=== PATIENT | female | born 1960 | race Caucasian/White ===

== ENCOUNTER 2019-12-08 11:52 | Emergency (ER) | payer BC, OTHER ==
[2019-12-08 13:41] VITALS: BP 122/91; TEMP 98; O2SAT 99
--- NOTE | 2019-12-10 17:56 | EDPHYS ---
Physician Documentation [facility] Name: Sherry Ro Age: 59 yrs Sex: Female : 1960 Arrival Date: 12/08/2019 Time: 11:53 Bed 13 Private MD: ED Physician Rolly Herrera HPI: 12/07 13:22 This 59 yrs old Female presents to ER via Ambulatory with complaints of jr8 Medical Clearance. 13:22 Patient stated that she had what appeared to be a GI virus a few days ago. 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 Stated that she went to urgent care but denied her as she had fever there. Patient stated that she does not feel feverish and has no symptoms at this time. Severity of symptoms: At their worst the symptoms were mild in the emergency department the symptoms are unchanged. The patient has not experienced similar symptoms in the past. The patient has not recently seen a physician. Historical: - Allergies: 12:32 PENICILLINS; em - Home Meds: 12:32 None [Active]; em - PMHx: 12:32 None; em - PSHx: 12:32 None; em - Immunization history:: Adult Immunizations up to date. - Social history:: Smoking status: Patient reports the use of cigarette tobacco products, smokes one-half pack cigarettes per day. ROS: 13:22 Constitutional: Negative for fever, chills, and weight loss, Eyes: Negative for injury, jr8 pain, redness, and discharge, ENT: Negative for injury, pain, and discharge, Neck: Negative for injury, pain, and swelling, Cardiovascular: Negative for chest pain, palpitations, and edema, Respiratory: Negative for shortness of breath, cough, wheezing, and pleuritic chest pain, Abdomen/GI: Negative for abdominal pain, nausea, vomiting, diarrhea, and constipation, Back: Negative for injury and pain, MS/Extremity: Negative for injury and deformity, Skin: Negative for injury, rash, and discoloration, Neuro: Negative for headache, weakness, numbness, tingling, and seizure. Exam: 13:22 Constitutional: This is a well developed, well nourished patient who is awake, alert, jr8 and in no acute distress. Eyes: Pupils equal round and reactive to light, extra-ocular motions intact. Lids and lashes normal. Conjunctiva and sclera are non-icteric and not injected. Cornea within normal limits. Periorbital areas with no swelling, redness, or edema. ENT: Nares patent. No nasal discharge, no septal abnormalities noted. Tympanic membranes are normal and external auditory canals are clear. Oropharynx with no redness, swelling, or masses, exudates, or evidence of obstruction, uvula midline. Mucous membranes moist. Neck: Trachea midline, no thyromegaly or masses palpated, and no cervical lymphadenopathy. Supple, full range of motion without nuchal rigidity, or vertebral point tenderness. No Meningismus. Cardiovascular: Regular rate and rhythm with a normal S1 and S2. No gallops, murmurs, or rubs. Normal PMI, no JVD. No pulse deficits. Respiratory: Lungs have equal breath sounds bilaterally, clear to auscultation and percussion. No rales, rhonchi or wheezes noted. No increased work of breathing, no retractions or nasal flaring. Abdomen/GI: Soft, non-tender, with normal bowel sounds. No distension or tympany. No guarding or rebound. No evidence of tenderness throughout. Back: No spinal tenderness. No costovertebral tenderness. Full range of motion. Skin: Warm, dry with normal turgor. Normal color with no rashes, no lesions, and no evidence of cellulitis. MS/ Extremity: Pulses equal, no cyanosis. Neurovascular intact. Full, normal range of motion. Neuro: Awake and alert, GCS 15, oriented to person, place, time, and situation. Cranial nerves II-XII grossly intact. Motor strength 5/5 in all extremities. Sensory grossly intact. Cerebellar exam normal. Normal gait. Vital Signs: 12:28 BP 122 / 91; Pulse 96; Resp 18; Temp 98.0(O); Pulse Ox 99% on R/A; Weight 74.84 kg; em Height 5 ft. 5 in. (165.10 cm); Pain 0/10; 12:28 Body Mass Index 27.46 (74.84 kg, 165.10 cm) em MDM: 12:[address] [facility] 13:22 Data reviewed: vital signs, nurses notes, lab test result(s), and as a result, I will [facility] discharge patient. Data interpreted: Pulse oximetry: on room air is 99 %. Interpretation: normal. Counseling: I had a detailed discussion with the patient and/or guardian regarding: the historical points, exam findings, and any diagnostic results supporting the discharge/admit diagnosis, lab results, the need for outpatient follow up, a family practitioner, to return to the emergency department if symptoms worsen or persist or if there are any questions or concerns that arise at home. 12/07 13:08 Order name: COVID-Lai jr8 Administered Medications: No medications were administered Disposition: 15:35 Co-signature as Attending Physician, Rolly Herrera MD I agree with the assessment and kdr plan of care. Disposition: 12/08/19 13:28 Discharged to Home. Impression: Encounter for general adult medical examination. - Condition is Stable. - Discharge Instructions: COVID-19. - Work release form, Medication Reconciliation Form, Thank You Letter, Antibiotic Education, Prescription Opioid Use form. - Follow up: Private Physician; When: As needed; Reason: Recheck today's complaints, Continuance of care, Re-evaluation by your physician. - Problem is new. - Symptoms have improved. Signatures: Dispatcher [employer] [facility] Rolly Herrera MD MD [facility] Francois Sky, ARIELLA RN em Lisbeth Duran RN RN Harish Saavedra PA PA jr8 Corrections: (The following items were deleted from the chart) 13:34 13:28 12/08/2019 13:28 Discharged to Home. Impression: Encounter for general adult ss medical examination. Condition is Stable. Forms are Medication Reconciliation Form, Thank You Letter, Antibiotic Education, Prescription Opioid Use. Follow up: Private Physician; When: As needed; Reason: Recheck today's complaints, Continuance of care, Re-evaluation by your physician. Problem is new. Symptoms have improved. jr8
--- NOTE | 2019-12-10 17:56 | ER ---
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 Coronavirus screen: Proceed with normal triage. Patient reports a cough. Patient denies shortness of breath or difficulty breathing. Patient denies measured and/or subjective temperature greater than 100.4F prior to today's visit. Patient denies travel on a cruise ship or to a country the [facility] currently lists as an affected area. Patient reports contact with known and/or suspected case of COVID-19. pt works at [employer]. Ebola Screen: Patient negative for fever greater than or equal to 101.5 degrees Fahrenheit, and additional compatible Ebola Virus Disease symptoms Patient denies exposure to infectious person. Patient denies travel to an Ebola-affected area in the 21 days before illness onset. No symptoms or risks identified at this time. Initial Sepsis Screen: Does the patient meet any 2 criteria? HR > 90 bpm. No. Patient's initial sepsis screen is negative. Does the patient have a suspected source of infection? No. Patient's initial sepsis screen is negative. Risk Assessment: Do you want to hurt yourself or someone else? Patient reports no desire to harm self or others. Onset of symptoms was December 08, 2019. 12:28 Method Of Arrival: Ambulatory em 12:28 Acuity: JOVANNA 5 em Historical: - Allergies: 12:32 PENICILLINS; em - Home Meds: 12:32 None [Active]; em - PMHx: 12:32 None; em - PSHx: 12:32 None; em - Immunization history:: Adult Immunizations up to date. - Social history:: Smoking status: Patient reports the use of cigarette tobacco products, smokes one-half pack cigarettes per day. Screenin:28 Abuse screen: Denies threats or abuse. Nutritional screening: No deficits noted. em Tuberculosis screening: No symptoms or risk factors identified. Fall Risk None identified. Assessment: 12:30 General: Appears in no apparent distress. comfortable, Behavior is calm, cooperative, em appropriate for age, Denies fever. Pain: Denies pain. Neuro: Level of Consciousness is awake, alert, obeys commands, Oriented to person, place, time, situation, Appropriate for age. Cardiovascular: Capillary refill < 3 seconds Patient's skin is warm and dry. Respiratory: Airway is patent Respiratory effort is even, unlabored, Respiratory pattern is regular, symmetrical. GI: Abdomen is flat, Patient currently denies diarrhea, nausea, vomiting. Derm: Skin is intact, is healthy with good turgor, Skin is pink, warm \T\ dry. Musculoskeletal: Capillary refill < 3 seconds, Range of motion: intact in all extremities. Vital Signs: 12:28 BP 122 / 91; Pulse 96; Resp 18; Temp 98.0(O); Pulse Ox 99% on R/A; Weight 74.84 kg; em Height 5 ft. 5 in. (165.10 cm); Pain 0/10; 12:28 Body Mass Index 27.46 (74.84 kg, 165.10 cm) em ED Course: 11:53 Patient arrived in ED. ag5 12:28 Patient has correct armband on for positive identification. Bed in low position. Call em light in reach. 12:31 Triage completed. em 12:32 Arm band placed on. em 12:33 Francois Sky, RN is Primary Nurse. em 12:34 Harish Saavedra PA is PHCP. jr8 12:34 Rolly Herrera MD is Attending Physician. jr8 13:33 COVID-19 Sent. ss 13:33 No provider procedures requiring assistance completed. Patient did not have IV access ss during this emergency room visit. Administered Medications: No medications were administered Outcome: 13:28 Discharge ordered by . jr8 13:33 Discharged to home ambulatory. ss 13:33 Condition: good 13:33 Discharge instructions given to patient, Instructed on discharge instructions, follow up and referral plans. medication usage, Demonstrated understanding of instructions, follow-up care. 13:34 Patient left the ED. ss Addendum: 12/13/2019 11:35 Addendum: Other COVID-19 not detected result called to patient, pt verbalizes a a5 understanding. Signatures: Francois Sky RN RN em Trudi Rome RN RN aa5 Lisbeth Duran RN RN ss Harish Saavedra PA PA jr8 Davian Henson ag5 Corrections: (The following items were deleted from the chart) 12/07 12:33 12:28 BP 122 / 91; Pulse 96bpm; Resp 18bpm; Pulse Ox 99% RA; 74.84 kg; Height 5 ft. 5 em in.; BMI: 27.4; Pain 0/10; em
== END 2019-12-08 13:34 | disposition home or self-care (01) ==
LOC: ER 11:52
DX: Z00.00 Encounter for general adult medical examination without abnormal findings (principal); Z20.828 Contact with and (suspected) exposure to other viral communicable diseases; F17.210 Nicotine dependence, cigarettes, uncomplicated; Z88.0 Allergy status to penicillin
CPT/HCPCS: 99283; U0002

== ENCOUNTER 2022-07-03 10:49 | Emergency (ER) | payer BC ==
--- OUTSIDE RECORDS SUMMARY | 2022-07-03 10:55 | XMS REPORT | Continuity of Care Document ---
:1960 Author Organization [facility] t Address [address] [place] [address] Care Team Providers Name Role Phone Trudi Long Primary Care Physician Alexi Mathis Attending Clinician Provider MD, Not In System Attending Clinician Unavailable Loren Lebron MA Attending Clinician Unavailable Licha Delgado MD Attending Clinician Andres GUZMAN, Gema Ulloa Attending Clinician [phone] Cecelia Mcgrath MA Attending Clinician Unavailable Sadaf Dumont MA Attending Clinician Unavailable Monica Quiros RD Attending Clinician Unavailable Leticia Hinkle MA Attending Clinician Unavailable Vel LÓPEZ, Pedro Omalley Attending Clinician Hina RISK CONTROL FIELD REPRESENTATIVE, Alexandra Wills Attending Clinician Beatriz Dumont RN Attending Clinician Unavailable Christian Waller MD Attending Clinician Joseph Pastor Attending Clinician Morgan Ayoub Attending Clinician Autumn Jean MD Attending Clinician [phone] Lonnie Levi MD Attending Clinician Evelin LÓPEZ, Dasia Tamez Attending Clinician Tomasz Zavala PT Attending Clinician Unavailable Salvador Serrato MD Attending Clinician Christos LÓPEZ, Blas Attending Clinician Maddie GUZMAN, Madison Attending Clinician Magali David MA Attending Clinician Unavailable PEDRO CROWDER Admitting Clinician Unavailable LICHA DELGADO Admitting Clinician Unavailable SALVADOR SERRATO Admitting Clinician Unavailable Payers Payer Name Policy Type Policy Number Effective Date Expiration Date S ource Problems Condition Condition Condition Status Onset Resolution Last Treating Co mments Source Name Details Category Date Date Treatment Clinician Date Jejunostom Jejunostom Disease Active M ethodi y tube y tube 01-21 st site pain site pain 00:00: Hosp vicky 00 l Esophageal Esophageal Disease Active M ethodi cancer cancer 01-13 st 00:00: Hospita 00 l H/O H/O Disease Active [facility] esophagect esophagect 01-06 st shawn shawn 00:00: Hospita 00 l Chronic Chronic Disease Active [facility] GERD GERD 01-06 st 00:00: Hospita 00 l Primary Primary Disease Active Methodi hypertensi hypertensi 01-06 st on on 00:00: Hospita 00 l Malignant Malignant Disease Active Overview: Methodi neoplasm neoplasm 5-[address] of lower of lower 00:00: g of this Hos laura third of third of 00 note l esophagus esophagus might be different from the original. Added automatic ally from request for surgery [id number] Lumbar Lumbar Problem Active 2022-06-13 [facility] tran spondylosi spondylosi 13:01:17 l s s [place] (disorder) (disorder) Active Problem 06/13/2022 [facility] Paresthesi Problem Active 2022-06-13 M emoria a Paresthesi 13:01:17 l (finding) a Abdoulaye (finding) Active Problem 06/13/2022 [facility] Beriberi Beriberi Problem Active 2022-06-13 Memoria (disorder) (disorder) 13:01:17 l Active [place] Problem 06/13/2022 [facility] Peripheral Periphera Problem Active 2022-06-13 Memoria nerve l nerve 13:01:17 l disease disease Abdoulaye (disorder) (disorder) Active Problem 06/13/2022 [facility] Allergies, Adverse Reactions, Alerts Allergy Allergy Status Severity Reaction(s) Onset Inactive Treating Comm ents Source Name Type Date Date Clinician Penicill Propensi Active Hives Method i ins ty to 11-16 st adverse 00:00: Hospita reaction 00 l s to drug penicill penicill Active Memori a in in l Abdoulaye Family History Family Member Diagnosis Comments Start Date Stop Date Source Natural father COPD [facility] Natural father Heart attack [facility] Natural mother Hypertension [facility] Family member Colon cancer [facility] Family member Colon polyps [facility] Family member Pancreatic cancer Meth [facility] Family member Pancreatitis [facility] Social History Social Habit Start Date Stop Date Quantity Comments Source Alcohol intake 2022-02-17 2022-02-17 Current drinker [facility] 00:00:00 00:00:00 of alcohol Hospital (finding) Cigarettes smoked 2022-01-06 2022-01-[address] current (pack per 00:00:00 00:00:00 Hospita l day) - Reported Cigarette 2022-01-06 2022-01-06 [facility] pack-years 00:00:00 00:00:00 Hospital Tobacco use and 2022-01-06 2022-01-06 Smokeless tobacco [facility] exposure 00:00:00 00:00:00 non-user Hospital History of tobacco 2022-01-01 Current smoker [facility] use 00:00:00 Hospital Tobacco Comment 2021-12-16 2021-12-16 decreasing 2-3 [facility] 00:00:00 00:00:00 cigarettes per Hospital day Alcohol Comment 2021-11-16 2021-11-16 one drink [facility] 00:00:00 00:00:00 everyday after Hospital work Sex Ass[birth year] At [birth year] [facility] 00:00:00 00:00:00 Hospital Smoking Status Start Date Stop Date Source Tobacco smoking status 2022-06-10 14:16:26 2022-06-10 14:16:26 M elkin [facility] Medications Ordered Filled Start Stop Current Ordering Indication Dosage Frequency Signature Comments Components Source Medication Medication Date Date Medication? 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 Hospi ta 40 MG EC 06 l tablet gabapentin 2021- No [id number] 300mg Q8H Take 1 Method[facility] (NEURONTIN) 02-01 08-[address] 300 mg 00:00: 04:59 (300 mg Hospita capsule 00 :00 total) by l mouth every 8 (eight) hours for 30 days. methocarbam 2021- No [id number] 750mg Q8H Take 1 Methodi oL 7-25 08-[address] (ROBAXIN) 00:00: 04:59 (750 mg Hosp vicky 750 MG 00 :00 total) by l tablet mouth every 8 (eight) hours as needed for muscle spasms for up to 14 days. traZODone Yes 100mg QD Take 100 Met hodi (DESYREL) 7-[address] 100 MG 00:00: mouth Hospita tablet 00 nightly. l ostomy Yes [id number] [employer] [facility] supplies 7-[id number] misc 00:00: (Lot Hospita 00 #[id number]) l ostomy pouch, apply ostomy pouch to jejunostom y site every 3 days ostomy 2021- No [id number] [employer] [facility] supplies 7-20 07-[id number] misc 00:00: 00:00 ostomy Hospita 00 :00 pouch l (lot#[id number] ), apply to jejunostom y site every 3 days. clindamycin 2021- No 450mg Q.[id number] Take 3 Method[facility] (Cleocin 7-15 07-[id number] HCL) 150 MG 00:00: 04:59 3D (450 mg Ho spita capsule 00 :00 total) by l mouth 3 (three) times a day for 13 days. methocarbam 2021- No 750mg Q.[id number] Take 1 Methodi oL 01-[id number] (Robaxin-75 00:00: 04:59 3D (750 mg Ho spita 0) 750 MG 00 :00 total) by l tablet mouth 3 (three) times a day for 5 days. lisinopriL 2021- No 10mg QD Take 10 mg Method[facility] (PRINIVIL) 01-[address] 10 mg 17:53: 00:00 every Hospita tablet 55 :00 morning. l cholecalcif 2021- No 1{tbl} QD Take 1 M ethodi galindo, 01-15 tablet by vitamin D3, 17:53: 00:00 mouth Hosp vicky (VITAMIN D3 55 :00 daily. l ORAL) acetaminoph 2021- No 1{tbl} QD Take 1 M ethodi en/diphenhy 01-15 tablet by dramine 17:53: 00:00 mouth Hospita (TYLENOL PM 55 :00 nightly as l EXTRA needed. STRENGTH ORAL) enoxaparin 2021- No 40mg QD Inject 0.4 Methodi (LOVENOX) 01-15 mL ([address] 40 mg/0.4 00:00: 04:59 total) Hospi ta mL syringe 00 :00 under the l skin daily for 30 days. lidocaine 2021- No 1{patch Q24H Place 1 M ethodi (LIDODERM) 01-15 } patch on st 5 % 00:00: 04:59 the skin Hospita 00 :00 daily for l 30 days. Remove & Discard patch within 12 hours or as directed by MD mancini 2021- No 1000mg Q8H 31.3 mL Methodi en 01-15 (1,[address] (TYLENOL) 00:00: 04:59 total) by Ho spita 160 mg/5 mL 00 :00 j-tube l (5 mL) route solution every 8 (eight) hours for 14 days. acetylcyste 2021- No [id number] 4mL Q.25D Take 4 mL Methodi ine 01-[id number] (MUCOMYST) 00:00: 04:59 nebulizati Hospita 200 mg/mL 00 :00 on every 4 l (20 %) (four) nebulizer hours solution while awake for 14 days. gabapentin 2021- No 250mg Q8H 5 mL (250 Methodi (NEURONTIN) 01-15 mg total) st 250 mg/5 mL 00:00: 04:59 by j-tube Hospita solution 00 :00 route l every 8 (eight) hours for 14 days. ipratropium 2021- No [id number] 3mL Q.[id number] Take 3 mL Methodi -albuteroL 01-[id number] (DUO-NEB) 00:00: 04:59 7D nebulizati H ospita 0.5-2.5 00 :00 on every 4 l mg/3 mL (four) nebulizer hours for 14 days. clindamycin 2021- No 150mg Q.[id number] 10 mL (150 Methodi (CLEOCIN) 01-15 [id number] mg total) st 75 mg/5 mL 00:00: 04:59 3D by j-tube H ospita solution 00 :00 route 3 l (three) times a day for 7 days. pantoprazol 2021- No 40mg QD Take 40 mg Methodi e 4-20 01-[address] (PROTONIX) 00:00: 00:00 every Hospi ta 40 MG EC 00 :00 morning. l tablet Immunizations Ordered Immunization Filled Immunization Date Status Commen ts Source Name Name PFIZER COVID-19 MRNA 2021-12-11 Completed Meth odist VACCINATION 00:00:00 [facility] COVID-19 2020-10-30 Completed Methodis t MRNA VACCINATION 00:00:00 [facility] COVID-19 2020-10-02 Completed Methodis t MRNA VACCINATION 00:00:00 Hospital Vital Signs Vital Name Observation Time Observation Value Comments Source Systolic (mm Hg) 2022-06-10 14:16:00 [place]asta rial Abdoulaye Diastolic (mm Hg) 2022-06-10 14:16:00 Mem orial [place] Heart Rate 2022-06-10 14:16:00 [facility] Height 2022-06-10 14:16:00 [facility] 2022-06-10 14:16:00 [facility] BMI Calculated 2022-06-10 14:16:00 Memori al Abdoulaye Systolic (mm Hg) 2022-04-26 18:35:00 [facility]asta rial Abdoulaye Diastolic (mm Hg) 2022-04-26 18:35:00 Mem orial Abdoulaye Heart Rate 2022-04-26 18:35:00 [facility] Height 2022-04-26 18:35:00 5 [ft_i] [facility] Weight 2022-04-26 18:35:00 [facility] BMI Calculated 2022-04-26 18:35:00 [facility] al Abdoulaye Systolic blood 2022-02-17 15:56:00 98 mm[Hg] Method [facility] pressure Diastolic blood 2022-02-17 15:56:00 56 mm[Hg] [facility] pressure Heart rate 2022-02-17 15:56:00 85 /min [facility] Body temperature 2022-02-17 15:56:00 36.28 Leatha [facility] Respiratory rate 2022-02-17 15:56:00 14 /min [facility] Body height 2022-02-17 15:56:00 162.6 cm [facility] Body weight 2022-02-17 15:56:00 67.223 kg [facility] BMI 2022-02-17 15:56:00 25.44 kg/m2 [facility] Oxygen saturation in 2022-02-17 15:56:00 95 /min [facility] Arterial blood by Pulse oximetry Procedures Procedure Date / Time Performing Source Performed Clinician US DUPLEX VENOUS LOWER EXTREMITY 2022-03-01 Provider, Not I n [facility] 00:00:00 [facility] BASIC METABOLIC PANEL 2022-01-22 Michelle Ariza 10:15:00 [facility] CBC WITH PLATELET AND DIFFERENTIAL 2022-01-22 Ariza, Michelle [facility] 10:15:00 [facility] MAGNESIUM LEVEL 2022-01-22 Ariza, Michelle [facility] 10:15:00 [facility] PHOSPHORUS LEVEL 2022-01-22 Ariza, Michelle [facility] 10:15:00 [facility] ESTIMATED GFR 2022-01-22 Pedro Crowder [facility] 10:15:00 [facility] BASIC METABOLIC PANEL 2022-01-21 Ariza, Michelle [facility] 10:27:00 [facility] CBC WITH PLATELET AND DIFFERENTIAL 2022-01-21 Ariza, Michelle [facility] 10:27:00 [facility] MAGNESIUM LEVEL 2022-01-21 Ariza, Michelle [facility] 10:27:00 [facility] PHOSPHORUS LEVEL 2022-01-21 Ariza, Michelle [facility] 10:27:00 [facility] ESTIMATED GFR 2022-01-21 Pedro Crowder [facility] 10:27:00 Hospital POC GLUCOSE 2022-01-20 Pedro Crowder [facility] 22:27:00 [facility] POC GLUCOSE 2022-01-20 Pedro Crowder [facility] 16:33:00 Hospital POC GLUCOSE 2022-01-20 Pedro Crowder [facility] 13:04:00 [facility] COVID-19 QUALITATIVE RT-PCR 2022-01-20 Ariza, Michelle Meth odist 10:21:00 [facility] BASIC METABOLIC PANEL 2022-01-20 Ariza, Michelle [facility] 09:31:00 [facility] CBC WITH PLATELET AND DIFFERENTIAL 2022-01-20 Ariza, Michelle [facility] 09:31:00 [facility] MAGNESIUM LEVEL 2022-01-20 Ariza, Michelle [facility] 09:31:00 [facility] PHOSPHORUS LEVEL 2022-01-20 Ariza, Michelle [facility] 09:31:00 [facility] ESTIMATED GFR 2022-01-20 Pedro Crowder [facility] 09:31:00 Hospital URINE CULTURE 2022-01-19 Pedro Crowder [facility] 22:56:00 Hospital URINALYSIS SCREEN AND MICROSCOPY, 2022-01-19 Dio Umanzor [facility] WITH REFLEX TO CULTURE 22:56:00 Hospital BLOOD CULTURE, AEROBIC & ANAEROBIC 2022-01-19 Mauri Umanzor 16:57:00 Hospital BLOOD CULTURE, AEROBIC & ANAEROBIC 2022-01-19 Mauri Umanzor 16:42:[address] CHEST W CONTRAST ABDOMEN W 2022-01-19 Ana M Umanzor CONTRAST PELVIS W CONTRAST 15:38:58 Hospi alireza FL ESOPHAGRAM SINGLE CONTRAST 2022-01-19 Ana M Umanzor 15:07:43 Hospital POC GLUCOSE 2022-01-19 Pedro Crowder 10:12:00 Hospital CBC WITH PLATELET AND DIFFERENTIAL 2022-01-19 Michelle Ariza 09:16:00 [facility] BASIC METABOLIC PANEL 2022-01-19 Michelle Ariza 09:16:00 [facility] MAGNESIUM LEVEL 2022-01-19 Michelle Ariza 09:16:00 [facility] PHOSPHORUS LEVEL 2022-01-19 Michelle Ariza 09:16:00 [facility] ESTIMATED GFR 2022-01-19 Pedro Crowder 09:16:00 Hospital POC GLUCOSE 2022-01-19 Pedro Crowder 06:50:00 Hospital POC GLUCOSE 2022-01-19 Pedro Crowder 03:08:00 [facility] BASIC METABOLIC PANEL 2022-01-19 Pedro Crowder t 01:55:00 Hospital MAGNESIUM LEVEL 2022-01-19 Pedro Crowder 01:55:00 Hospital PHOSPHORUS LEVEL 2022-01-19 Pedro Crowder 01:55:00 Hospital ESTIMATED GFR 2022-01-19 Pedro Crowder 01:55:00 Hospital CBC WITH PLATELET AND DIFFERENTIAL 2022-01-18 Michelle Ariza 23:32:00 [facility] BASIC METABOLIC PANEL 2022-01-18 Lul Arizaca [facility] 23:32:00 [facility] MAGNESIUM LEVEL 2022-01-18 ArizaLindaMichelle [facility] 23:32:00 [facility] PHOSPHORUS LEVEL 2022-01-18 Ariza Michelle [facility] 23:32:00 [facility] POC GLUCOSE 2022-01-18 Pedro Crowder 22:08:00 Hospital XR CHEST 1 VW PORTABLE 2022-01-15 SandyLicha 19:03:42 Hospital POC GLUCOSE 2022-01-15 Sandy, Licha Vasquez 16:13:00 Hospital POC GLUCOSE 2022-01-15 Licha Delgado 12:25:00 Hospital BASIC METABOLIC PANEL 2022-01-15 Ariza, Michelle [facility] 11:51:00 [facility] CBC WITH PLATELET AND DIFFERENTIAL 2022-01-15 Ariza, Michelle [facility] 11:51:00 [facility] MAGNESIUM LEVEL 2022-01-15 Ariza, Michelle [facility] 11:51:00 [facility] PHOSPHORUS LEVEL 2022-01-15 Ariza, Michelle [facility] 11:51:00 [facility] ESTIMATED GFR 2022-01-15 Licha Delgado 11:51:00 Hospital POC GLUCOSE 2022-01-15 Licha Delgado 10:11:00 Hospital POC GLUCOSE 2022-01-15 Licha Delgado 05:52:00 Hospital POC GLUCOSE 2022-01-15 Licha Delgado 02:00:00 Hospital POC GLUCOSE 2022-01-14 Licha Delgado 21:24:00 Hospital POC GLUCOSE 2022-01-14 Licha Delgado 20:33:00 Hospital POC GLUCOSE 2022-01-14 Licha Delgado 17:53:00 Hospital XR CHEST 1 VW PORTABLE 2022-01-14 Licha Delgado 14:40:00 Hospital LINE/DRAIN REMOVAL 2022-01-14 Licha Delgado 13:48:22 Hospital POC GLUCOSE 2022-01-14 Licha Delgado 13:11:00 Hospital XR CHEST 1 VW PORTABLE 2022-01-[address] 11:55:00 Hospital BASIC METABOLIC PANEL 2022-01-14 Ana M Umanzor t 10:38:00 Hospital CBC WITH PLATELET AND DIFFERENTIAL 2022-01-14 Mauri Umanzor [facility] 10:38:00 Hospital PHOSPHORUS LEVEL 2022-01-14 Ana M Umanzor [facility] 10:38:00 Hospital MAGNESIUM LEVEL 2022-01-14 Ana M Umanzor [facility] 10:38:00 Hospital ESTIMATED GFR 2022-01-14 Licha Delgado 10:38:00 Hospital POC GLUCOSE 2022-01-14 Licha Delgado 02:26:00 Hospital POC GLUCOSE 2022-01-13 Licha Delgado 22:09:00 Hospital POC GLUCOSE 2022-01-13 Licha Delgado 18:07:00 Hospital POC GLUCOSE 2022-01-13 Licha Delgado 13:08:00 Hospital XR CHEST 1 VW PORTABLE 2022-01-13 Ana M Umanzor Dexi st 11:55:00 Hospital BASIC METABOLIC PANEL 2022-01-13 Ana M Umanzor Methodis t 10:36:00 Hospital CBC WITH PLATELET AND DIFFERENTIAL 2022-01-13 Nader Suero Mauri Kowalskiist 10:36:00 Hospital PHOSPHORUS LEVEL 2022-01-13 Dio Umanzordee [facility] 10:36:00 Hospital MAGNESIUM LEVEL 2022-01-13 Dio Umanzordee [facility] 10:36:00 Hospital ESTIMATED GFR 2022-01-13 Licha Delgado 10:36:00 Hospital SMEAR REVIEW 2022-01-13 Licha Delgado 10:36:00 Hospital POC GLUCOSE 2022-01-13 Licha Delgado 01:56:00 Hospital POC GLUCOSE 2022-01-12 Licha Delgado 20:18:00 Hospital XR CHEST 1 VW PORTABLE 2022-01-12 Michelle Ariza 19:25:00 [facility] RESPIRATORY CULTURE 2022-01-12 Licha Delgado 19:15:00 Hospital AFB CULTURE 2022-01-12 Licha Delgado 19:15:00 Hospital FUNGUS CULTURE 2022-01-12 Licha Delgado 19:15:00 Hospital GRAM STAIN 2022-01-12 Licha Delgado 19:15:00 Hospital AFB STAIN 2022-01-12 Licha Delgado 19:15:00 Hospital AL AN ELECTIVE ENDOTRACHEAL AIRWAY 2022-01-12 Stazzone, Cor inne [facility] 18:42:00 [facility] BRONCHOSCOPY 2022-01-12 SridharChristian Merrill [facility] 18:38:00 [facility] Hospital TYPE AND SCREEN 2022-01-12 Michelle Ariza 15:47:00 [facility] PROTHROMBIN TIME WITH INR 2022-01-12 Michelle Ariza Method ist 15:47:00 [facility] PARTIAL THROMBOPLASTIN TIME (PTT) 2022-01-12 Michelle Ariza 15:47:00 [facility] POC GLUCOSE 2022-01-12 Licha Delgado 13:12:00 Hospital XR CHEST 1 VW PORTABLE 2022-01-[address] 11:50:00 Hospital BASIC METABOLIC PANEL 2022-01-12 Dio Umanzordee Dexis t 07:59:00 Hospital CBC WITH PLATELET AND DIFFERENTIAL 2022-01-12 Nader Suero Briceño ydedee [facility] 07:59:00 Hospital PHOSPHORUS LEVEL 2022-01-12 Dio Umanzordee [facility] 07:59:00 Hospital MAGNESIUM LEVEL 2022-01-12 Dio Umanzordee [facility] 07:59:00 Hospital ESTIMATED GFR 2022-01-12 Licha Delgado 07:59:00 Hospital SMEAR REVIEW 2022-01-12 Licha Delgado 07:59:00 Hospital POC GLUCOSE 2022-01-12 Licha Delgado 01:27:00 Hospital POC GLUCOSE 2022-01-11 Licha Delgado 22:03:00 Hospital US CHEST 2022-01-11 Michelle Arizaist 20:28:37 [facility] POC GLUCOSE 2022-01-11 Licha Delgado 16:40:00 Hospital POC GLUCOSE 2022-01-11 Licha Delgado 12:28:00 Hospital XR CHEST 1 VW PORTABLE 2022-01-11 Radha Varghese 12:15:00 [facility] POC GLUCOSE 2022-01-11 Licha Delgado 01:46:00 Hospital POC GLUCOSE 2022-01-10 Licha Delgado 21:39:00 Hospital POC GLUCOSE 2022-01-10 Licha Delgado 16:38:00 Hospital POC GLUCOSE 2022-01-10 Licha Delgadoist 13:08:00 Hospital XR CHEST 1 VW PORTABLE 2022-01-10 Radha Varghese [facility] 10:45:00 [facility] CBC WITH PLATELET AND DIFFERENTIAL 2022-01-10 SandyLicha 09:43:00 Hospital BASIC METABOLIC PANEL 2022-01-10 Licha Delgado 09:42:00 Hospital MAGNESIUM LEVEL 2022-01-10 SandyLicha 09:42:00 Hospital PHOSPHORUS LEVEL 2022-01-10 SandyLicha 09:42:00 Hospital ESTIMATED GFR 2022-01-10 SandyLicha 09:42:00 Hospital POC GLUCOSE 2022-01-10 Licha Delgado 02:00:00 Hospital POC GLUCOSE 2022-01-09 Lciha Delgado 21:39:00 Hospital POC GLUCOSE 2022-01-09 Licha Delgado 17:21:00 Hospital B NATRIURETIC PEPTIDE 2022-01-09 Del Ana M Suero Methodis t 14:02:00 Hospital POC GLUCOSE 2022-01-09 Licha Delgado 12:32:00 Hospital XR CHEST 1 VW PORTABLE 2022-01-09 Ariza Michelle [facility] 10:55:00 [facility] BASIC METABOLIC PANEL 2022-01-09 Ariza Michelle [facility] 09:27:00 [facility] CBC WITH PLATELET AND DIFFERENTIAL 2022-01-09 Ariza Michelle [facility] 09:27:00 [facility] MAGNESIUM LEVEL 2022-01-09 Ariza Michelle [facility] 09:27:00 [facility] PHOSPHORUS LEVEL 2022-01-09 Ariza Michelle [facility] 09:27:00 [facility] ESTIMATED GFR 2022-01-09 Licha Delgado 09:27:00 Hospital IONIZED CALCIUM 2022-01-09 Licha Delgado 09:27:00 Hospital POC GLUCOSE 2022-01-09 Licha Delgado 02:18:00 Hospital POC GLUCOSE 2022-01-08 Licha Delgado 21:10:00 Hospital POC GLUCOSE 2022-01-08 Licha Delgado 21:08:00 Hospital POC GLUCOSE 2022-01-08 Licha Delgado 16:47:00 Hospital US THORACENTESIS WITH IMAGING 2022-01-08 Ariza, Michelle Me thodist 15:49:21 [facility] XR CHEST 1 VW PORTABLE 2022-01-08 Red Hanson [facility] 15:45:00 Hospital AEROBIC CULTURE 2022-01-08 Ariza, Michlele [facility] 15:32:00 [facility] ANAEROBIC CULTURE 2022-01-08 Ariza, Michelle [facility] 15:32:00 [facility] FUNGUS CULTURE 2022-01-08 Ariza, Michelle [facility] 15:32:00 [facility] GRAM STAIN 2022-01-08 Licha Delgadoist 15:32:00 Hospital GLUCOSE LEVEL, MISC FLUID 2022-01-08 Ariza, Michelle Method ist 15:32:00 [facility] LDH, MISC FLUID 2022-01-08 Ariza Michelle [facility] 15:32:00 [facility] PROTEIN, MISC FLUID 2022-01-08 Ariza, Michelle [facility] 15:32:00 [facility] PH, MISC FLUID 2022-01-08 Licha Delgado 15:32:00 Hospital POC GLUCOSE 2022-01-08 Licah Delgado 12:47:00 Hospital XR CHEST 1 VW PORTABLE 2022-01-08 Elsa Olea 11:12:22 [facility] POC GLUCOSE 2022-01-08 Licha Delgado [facility]:57[facility]00 [facility] 2022-01-08 Brandon Jonist TITER 06:29:00 [facility] ZZCOVID-19 SEROLOGY PATIENT 2022-01-08 Ramiro Jon SURVEILLANCE 06:29:00 [facility] CBC WITH PLATELET AND DIFFERENTIAL 2022-01-08 Trinidad Olea 06:29:00 [facility] BASIC METABOLIC PANEL 2022-01-08 Elsa Olea 06:29:00 [facility] MAGNESIUM LEVEL 2022-01-08 Elsa Olea 06:29:00 [facility] PHOSPHORUS LEVEL 2022-01-08 Elsa Olea 06:29:00 [facility] ESTIMATED GFR 2022-01-08 Elsa Olea 06:29:00 [facility] POC GLUCOSE 2022-01-08 SandyLicha 04:54:00 Hospital POC GLUCOSE 2022-01-08 Licha Delgado 01:00:00 Hospital POC GLUCOSE 2022-01-07 SandyLicha 21:55:00 Hospital POC GLUCOSE 2022-01-07 SandyLicha 16:51:00 Hospital POC GLUCOSE 2022-01-07 SandyLicha 12:51:00 Hospital XR CHEST 1 VW PORTABLE 2022-01-07 Elsa Olea 09:33:00 [facility] POC GLUCOSE 2022-01-07 SandyLicha 08:51:00 Hospital POC GLUCOSE 2022-01-07 SandyLicha 07:10:00 Hospital POC GLUCOSE 2022-01-07 SandyLicha 05:47:00 Hospital ARTERIAL BLOOD GAS 2022-01-07 Elsa Olea 05:30:00 [facility] BASIC METABOLIC PANEL 2022-01-07 Elsa Olea 05:30:00 [facility] CBC WITH PLATELET AND DIFFERENTIAL 2022-01-07 Trinidad Olea 05:30:00 [facility] MAGNESIUM LEVEL 2022-01-07 Elsa Olea 05:30:00 [facility] PARTIAL THROMBOPLASTIN TIME (PTT) 2022-01-07 Elsa Olea 05:30:00 [facility] PROTHROMBIN TIME WITH INR 2022-01-07 Elsa Olea ist 05:30:00 [facility] PHOSPHORUS LEVEL 2022-01-07 Elsa Olea 05:30:00 [facility] ESTIMATED GFR 2022-01-07 Elsa Olea 05:30:00 [facility] IONIZED CALCIUM, ARTERIAL 2022-01-07 Elsa Olea ist 05:30:00 [facility] SMEAR REVIEW 2022-01-07 Elsa Olea 05:30:00 [facility] POC GLUCOSE 2022-01-07 Licha Delgado 04:39:00 Hospital POC GLUCOSE 2022-01-07 Licha Delgado 03:50:00 Hospital POC GLUCOSE 2022-01-07 Licha Delgadoist 02:57:00 Hospital POC GLUCOSE 2022-01-07 Licha Delgado 01:52:00 Hospital POC GLUCOSE 2022-01-07 Licha Delgado 00:41:00 Hospital POC GLUCOSE 2022-01-06 Licha Delgado 23:54:00 Hospital XR CHEST 1 VW PORTABLE 2022-01-06 Naresh Molina 23:34:25 Hospital COMPREHENSIVE METABOLIC PANEL 2022-01-06 Naresh Molinaodi 23:13:00 Hospital MAGNESIUM LEVEL 2022-01-06 Naresh Molina 23:13:00 Hospital PHOSPHORUS LEVEL 2022-01-06 Naresh Molina 23:13:00 Hospital IONIZED CALCIUM 2022-01-06 Naresh Molina 23:13:00 Hospital LACTIC ACID LEVEL 2022-01-06 Naresh Molina 23:13:00 Hospital PROTHROMBIN TIME WITH INR 2022-01-06 Naresh Molina ist 23:13:00 Hospital PARTIAL THROMBOPLASTIN TIME (PTT) 2022-01-06 Naresh Molina 23:13:00 Hospital FIBRINOGEN 2022-01-06 Naresh Molina [facility] 23:13:00 Hospital CBC WITH PLATELET AND DIFFERENTIAL 2022-01-06 Naresh Molina 23:13:00 Hospital ESTIMATED GFR 2022-01-06 Naresh Molina 23:13:00 Hospital ARTERIAL BLOOD GAS 2022-01-06 Naresh Molina 23:13:00 Hospital POC GLUCOSE 2022-01-06 Licha Delgado 23:06:00 Hospital ARTERIAL BLOOD GAS, CORRECTED 2022-01-06 Licha Delgado thodist 20:34:00 Hospital SODIUM LEVEL, SYRINGE 2022-01-06 Licha Delgadoist 20:34:00 Hospital POTASSIUM, SYRINGE 2022-01-06 Licha Delgadoist 20:34:00 Hospital IONIZED CALCIUM, ARTERIAL 2022-01-06 Licha Delgado ist 20:34:00 Hospital HEMOGLOBIN, SYRINGE 2022-01-06 Licha Delgado 20:34:00 Hospital GLUCOSE LEVEL, SYRINGE 2022-01-06 Licha Delgadoist 20:34:00 Hospital LACTIC ACID, SYRINGE 2022-01-06 Licha Delgado 20:34:00 Hospital SURGICAL PATHOLOGY REQUEST 2022-01-06 Licha Delgado Metho dist 19:33:00 Hospital ARTERIAL BLOOD GAS, CORRECTED 2022-01-06 Licha Delgado thodist 18:55:00 Hospital SODIUM LEVEL, SYRINGE 2022-01-06 SandyLichaist 18:55:00 Hospital POTASSIUM, SYRINGE 2022-01-06 Sandy, Licha Kowalskiist 18:55:00 Hospital HEMOGLOBIN, SYRINGE 2022-01-06 Sandy, Licha Kowalskiist 18:55:00 Hospital IONIZED CALCIUM, ARTERIAL 2022-01-06 Licha Delgado ist 18:55:00 Hospital GLUCOSE LEVEL, SYRINGE 2022-01-06 Licha Delgadoist 18:55:00 Hospital ARTERIAL BLOOD GAS, CORRECTED 2022-01-06 Licha Delgado thodist 16:30:00 Hospital SODIUM LEVEL, SYRINGE 2022-01-06 Sandy, Licha Kowalskiist 16:30:00 Hospital POTASSIUM, SYRINGE 2022-01-06 Licha Delgadoist 16:30:00 Hospital HEMOGLOBIN, SYRINGE 2022-01-06 Sandy, Licha Owusu [facility] 16:30:00 Hospital IONIZED CALCIUM, ARTERIAL 2022-01-06 Licha Delgado ist 16:30:00 Hospital GLUCOSE LEVEL, SYRINGE 2022-01-06 Licha Delgadoist 16:30:00 Hospital ARTERIAL LINE 2022-01-06 Lonnie Levi 14:46:38 Hospital OR FL < 1 HOUR 2022-01-06 Radha Varghese 14:20:00 [facility] AL AN ELECTIVE ENDOTRACHEAL AIRWAY 2022-01-06 Lonnie Levi 13:33:00 Hospital JAMES RENETTA 2022-01-06 Licha Delgado ESOPHAGECTOMY,ROBOTIC-ASSISTED 13:15:00 H ospital ABO AND RH CONFIRMATION BY 2022-01-06 Avis Campos PROTOCOL 11:43:00 [facility] SPIROMETRY PRE AND POST WITH 2021-12-16 Licha Delgado hodist BRONCHILATOR, DIFFUSION, LUNG 20:34:38 Ho spital VOLUMES PROTHROMBIN TIME WITH INR 2021-12-16 Licha Delgado ist 16:40:00 Hospital RETICULOCYTE COUNT 2021-12-16 Licha Delgadoist 16:40:00 Hospital SEDIMENTATION RATE 2021-12-16 Sandy, Licha Vasquez 16:40:00 Hospital THYROID STIMULATING HORMONE 2021-12-16 Sandy, Licha Gamino odist 16:40:00 Hospital TOTAL IRON BINDING CAPACITY 2021-12-16 Sandy, Licha Gamino odist 16:40:00 Hospital TYPE AND SCREEN 2021-12-16 Sandy, Licha Vasquez 16:40:00 Hospital VITAMIN B12 LEVEL 2021-12-16 Sandy, Licha Vasquez 16:40:00 Hospital VITAMIN D 25 HYDROXY LEVEL 2021-12-16 Sandy, Licha Gaminoo dist 16:40:00 Hospital PREALBUMIN LEVEL 2021-12-16 Sandy, Licha Vasquez 16:40:00 Hospital PARTIAL THROMBOPLASTIN TIME (PTT) 2021-12-16 Sandy, Licha Vasquez 16:40:00 Hospital IRON LEVEL 2021-12-16 Sandy, Licha Vasquez 16:40:00 Hospital HEMOGLOBIN A1C 2021-12-16 Sandy, Licha Vasquez 16:40:00 Hospital FOLATE LEVEL 2021-12-16 Sandy, Licha Vasquez 16:40:00 Hospital FERRITIN LEVEL 2021-12-16 Sandy, Licha Vasquez 16:40:00 Hospital COMPREHENSIVE METABOLIC PANEL 2021-12-16 SandyLichaodi 16:40:00 Hospital CBC WITH PLATELET AND DIFFERENTIAL 2021-12-16 Sandy, Licha Vasquez 16:40:00 Hospital ESTIMATED GFR 2021-12-16 Sandy, Licha Vasquez 16:40:00 Hospital SMEAR REVIEW 2021-12-16 Sandy, Licha Vasquez 16:40:00 Hospital PREPARE RBC 2021-12-16 Sandy, Licha Vasquez 16:40:00 Hospital SURGICAL PATHOLOGY REQUEST 2021-12-02 Dacha, Salvador Metho dist 19:08:00 Hospital ESOPHAGOGASTRODUODENOSCOPY (EGD) 2021-12-02 Salvador Serrato 17:55:00 Hospital US UPPER GI TRACT, ENDOSCOPIC 2021-12-02 Dacmauri, Salvador Me thodist 17:55:[address] SKULL BASE TO MID THIGH 2021-11-24 Licha Delgado 20:56:23 Hospital POC GLUCOSE 2021-11-24 Licha Delgado 18:56:00 Hospital Esophagectomy [facility] Plan of Care Planned Activity Planned Date Details Comments Source Future Scheduled 2022-06-28 Hepatitis C screening [facility] Test 18:05:03 (procedure) [code = 288719443] Future Scheduled 2022-06-28 Screening for [facility] Test 18:05:03 malignant neoplasm of cervix (procedure) [code = 621059406] Future Scheduled 2022-06-28 BREAST CANCER [facility] Test 18:05:03 SCREENING [code = BREAST CANCER SCREENING] Future Scheduled 2022-06-28 COLONOSCOPY SCREENING [facility] Test 18:05:03 [code = COLONOSCOPY SCREENING] Future Scheduled 2022-06-28 SHINGLES VACCINES (1 [facility] Test 18:05:03 of 2) [code = SHINGLES VACCINES (1 of 2)] Future Scheduled 2022-06-28 COVID-19 VACCINE (4 - [facility] Test 18:05:03 Booster for Moderna series) [code = COVID-19 VACCINE (4 - Booster for Moderna series)] Future Scheduled 2022-06-28 INFLUENZA VACCINE [facility] Test 18:05:03 [code = INFLUENZA VACCINE] Encounters Start End Encounter Admission Attending Care Care Encounter Source Date/Time Date/Time Type Type Clinicians Facility Department ID 2022-08-11 2022-08-11 Outpatient JOSUE SALAS [id number] Memoria 09:30:00 09:30:00 02 laurie Stanford 2022-06-10 2022-06-11 Outpatient JOSUE LINDER [id number] Memoria 14:15:00 05:59:59 Neurology 01 laurie Stanford 2022-06-10 2022-06-10 Outpatient SERENE Mathis [id number] 08:15:00 23:59:59 Alexi 01 Joe 2022-06-10 2022-06-10 Outpatient JOSUE SALAS [id number] Memoria 08:15:00 08:15:00 01 laurie Stanford 2022-04-26 2022-04-27 Outpatient Martín LINDER [id number] Memoria 18:30:00 04:59:59 r Neurology 00 laurie Stanford 2022-04-26 2022-04-26 Outpatient [facility] [id number] 13:30:00 23:59:59 Alexi Diaz 2022-04-26 2022-04-26 Outpatient IE JAN [id number] Jerrodoria 13:30:00 13:30:00 00 l Abdoulaye 2022-03-04 2022-03-04 Orders Provider, 1.2.840.1 [id number] 2099 [id number] Methodi 00:00:00 00:00:00 Only [place] 70481.1.[address] System 3.430.2.7 Hospit a .3.997555 l .8 2022-03-04 2022-03-04 Telephone Bernardino, 1.2.840.1 [id number] Methodi 00:00:00 00:00:[address] 3.430.2.7 Hospit a .3.494099 l .8 2022-03-01 2022-03-01 Telephone Sandy, Min 1.2.840.3 [id number] 21 [id number] Methodi 00:00:00 00:00:[address] 3.430.2.7 Hospit a .3.229678 l .8 2022-03-01 2022-03-01 Telephone Bernardino, 1.2.840.1 [id number] [id number] Methodi 00:00:00 00:00:[address] 3.430.2.7 Hospit a .3.201698 l .8 2022-02-28 2022-02-28 Refdwayne Campos, 1.2.840.1 [id number] Methodi 00:00:00 00:00:00 Gema Ulloa 23211.1.1 849 s t 3.430.2.7 Hospit a .3.761833 l .8 2022-02-26 2022-02-26 Telephone Ramila, 1.2.840.1 [id number] 045 [id number] Methodi 00:00:00 00:00:[address] 3.430.2.7 Hospit a .3.615633 l .8 2022-02-25 2022-02-25 Orders Tim, 1.2.840.1 [id number] 012 [id number] Methodi 00:00:00 00:00:00 Only Sadaf 34682.1.[address] 3.430.2.7 Hospit a .3.949643 l .8 2022-02-25 2022-02-25 Telephone Bernardino, 1.2.840.1 [id number] 2100 548177 Methodi 00:00:00 00:00:[address] 3.430.2.7 Hospit a .3.571414 l .8 2022-02-23 2022-02-23 Telephone Lakhwindersalas, 1.2.840.1 [id number] 2099357 Methodi 00:00:00 00:00:[address] 3.430.2.7 Hospit a .3.943414 l .8 2022-02-19 2022-02-19 Telephone Hinkle, 1.2.840.1 [id number] 2099162 Methodi 00:00:00 00:00:[address] 3.430.2.7 Hospit a .3.363790 l .8 2022-02-17 2022-02-17 [facility] 1.2.840.1 [id number] Methodi 10:45:00 11:26:17 Visit Gema HaRafal 18059.1.1 521 s t 3.430.2.7 Hospit a .3.698538 l .8 2022-02-17 2022-02-17 Outpatient [facility] [id number] Rickreall 00:00:00 00:00:[address] [facility] 2022-02-17 2022-02-17 Travel 1.2.840.1 1.2.499.555 0426 531268 Methodi 00:00:00 00:00:[address] 3.430.2.7 0.2.7.3.698 Ho spita .3.810340 084.8 l .8 2022-02-10 2022-02-10 Abstract Tim, 1.2.840.1 [id number] Methodi 00:00:00 00:00:[address] 3.430.2.7 Hospit a .3.925350 l .8 2022-02-08 2022-02-08 Telephone [facility], 1.2.840.1 [id number] Methodi 00:00:00 00:00:00 Gema Ulloa 71899.1.1 062 s t 3.430.2.7 Hospit a .3.960048 l .8 2022-02-03 2022-02-03 Office [facility], 1.2.840.1 [id number] Methodi 10:45:00 12:46:43 Visit Gema Ulloa 58930.1.1 655 s t 3.430.2.7 Hospit a .3.195104 l .8 2022-02-03 2022-02-03 [facility] 090 [id number] Rickreall 00:00:00 00:00:00 GEMA [address] 2022-02-03 2022-02-03 Telephone Manan, 1.2.840.1 [id number] 2099 349099 Methodi 00:00:00 00:00:[address] 3.430.2.7 Hospit a .3.071702 l .8 2022-02-03 2022-02-03 Travel 1.2.840.1 1.2.683.552 1636 381905 Methodi 00:00:00 00:00:[address] 3.430.2.7 0.2.7.3.698 Ho spita .3.888287 084.8 l .8 2022-02-03 2022-02-03 Telephone Vel, 1.2.840.2 [id number] 010 [id number] Methodi 00:00:00 00:00:[address] 3.430.2.7 Hospit a .3.146299 l .8 2022-02-01 2022-02-01 Telephone Bernardino, 1.2.840.1 [id number] 2099 626827 Methodi 00:00:00 00:00:[address] 3.430.2.7 Hospit a .3.211667 l .8 2022-01-28 2022-01-28 Telephone Sandy, Min 1.2.840.6 [id number] Methodi 00:00:00 00:00:[address] 3.430.2.7 Hospit a .3.563568 l .8 2022-01-27 2022-01-27 Telephone Sandy, Min 1.2.840.4 [id number] [id number] Methodi 00:00:00 00:00:[address] 3.430.2.7 Hospit a .3.280870 l .8 2022-01-27 2022-01-27 Telephone Sandy, Min 1.2.840.3 [id number] 21 [id number] Methodi 00:00:00 00:00:[address] 3.430.2.7 Hospit a .3.302066 l .8 2022-01-27 2022-01-27 Telephone Andres, 1.2.840.6 [id number] Methodi 00:00:00 00:00:00 Gema HaRafal 19650.1.1 424 s t 3.430.2.7 Hospit a .3.525645 l .8 2022-01-26 2022-01-26 Telephone Manan, 1.2.840.1 [id number] 2100 846609 Methodi 00:00:00 00:00:[address] 3.430.2.7 Hospit a .3.202814 l .8 2022-01-18 2022-01-22 Hospital Vel, 1.2.840.1 [id number] 23621 52956 Methodi 16:56:00 12:47:00 Encounter Pedro Monroe. 80896.1.[address] 3.430.2.7 Hospit a .3.880498 l .8 2022-01-18 2022-01-22 Inpatient [facility] 027 [id number] 34 Rickreall 00:00:00 00:00:00 EDCLARK [address] 2022-01-18 2022-01-18 Office [place], 1.2.840.1 [id number] 069415 8202 Methodi 10:30:00 13:33:21 Visit Alexandra 12566.1.[address] Elma 3.430.2.7 Hospit a .3.955360 l .8 2022-01-18 2022-01-18 Orders Hina, 1.2.840.1 [id number] 294300 5927 Methodi 00:00:00 00:00:00 Only Alexandra 07317.1.[address] Elma 3.430.2.7 Hospit a .3.882146 l .8 2022-01-18 2022-01-18 Travel 1.2.840.1 1.2.111.541 0010 290209 Methodi 00:00:00 00:00:[address] 3.430.2.7 0.2.7.3.698 Ho spita .3.820108 084.8 l .8 2022-01-18 2022-01-18 Patient Tim, 1.2.840.1 [id number] 627 [id number] Methodi 00:00:00 00:00:00 Outreach Beatriz 92495.1.[address] 3.430.2.7 Hospit a .3.521059 l .8 2022-01-18 2022-01-18 Telephone [place], 1.2.840.1 [id number] 2099 840028 Methodi 00:00:00 00:00:[address] Elma 3.430.2.7 Hospit a .3.515689 l .8 2022-01-18 2022-01-18 Outpatient [facility] [id number] 893 Rickreall 00:00:00 00:00:[address] 2022-01-06 2022-01-15 Hospital Licha Delgado 1.2.840.1 [id number] 2100 039223 Methodi 05:55:00 17:53:00 Encounter Umer [address]8518.1.[address] 3.430.2.7 Hospit a .3.396703 l .8 2022-01-15 2022-01-15 Telephone Andres 1.2.840.1 [id number] Methodi 00:00:00 00:00:00 Gema HaRafal 97029.1.1 573 s t 3.430.2.7 Hospit a .3.601578 l .8 2022-01-06 2022-01-15 Inpatient LICHA DELGADO [facility] [id number] 230 Rickreall 00:00:00 00:00:[address] 2022-01-12 2022-01-12 Surgery Christian Waller 1.2.840.1 [id number] 371 0057538 Methodi 12:59:00 14:59:00 Merrill Stanislav 39972.1.[address] 3.430.2.7 Hospit a .3.514385 l .8 2022-01-12 2022-01-12 Anesthesia Joseph Pastor 1.2.840. 1 [id number] Methodi 13:33:00 14:20:00 Event Morgan Ayoub 50359.1.[address] 3.430.2.7 Hospit a .3.272985 l .8 2022-01-06 2022-01-06 Anesthesia Autumn Jean 1.2.840.1 [id number] Methodi 08:17:00 17:47:00 Event Lonnie Levi 12398.1.[address] 3.430.2.7 Hospit a .3.738371 l .8 2022-01-06 2022-01-06 Surgery Licha Delgado 1.2.840.1 [id number] 87137 34596 Methodi 08:15:00 17:45:[address] 3.430.2.7 Hospit a .3.306574 l .8 2022-01-06 2022-01-06 Travel 1.2.840.1 1.2.542.814 9342 006700 Methodi 00:00:00 00:00:[address] 3.430.2.7 0.2.7.3.698 Ho spita .3.229674 084.8 l .8 2022-01-05 2022-01-05 Prep for Meisenbach, 1.2.840.1 [id number] 2 [id number] Methodi 00:00:00 00:00:00 Surgery Gema Ulloa 69733.1.1 857 s t 3.430.2.7 Hospit a .3.468887 l .8 2022-01-05 2022-01-05 Telephone Meisenbach, 1.2.840.1 [id number] Methodi 00:00:00 00:00:00 Gema Ha. 70634.1.1 104 s t 3.430.2.7 Hospit a .3.023029 l .8 2021-12-31 2021-12-31 Telephone Meisenbach, 1.2.840.1 [id number] Methodi 00:00:00 00:00:00 Gema Ha. 88850.1.1 052 s t 3.430.2.7 Hospit a .3.568628 l .8 2021-12-17 2021-12-17 Telephone Sandy, Min 1.2.840.0 [id number] 21 [id number] Methodi 00:00:00 00:00:[address] 3.430.2.7 Hospit a .3.686829 l .8 2021-12-17 2021-12-17 Telephone Sandy, Min 1.2.840.4 [id number] 21 [id number] Methodi 00:00:00 00:00:[address] 3.430.2.7 Hospit a .3.723176 l .8 2021-12-17 2021-12-17 Telephone Andres, 1.2.840.1 [id number] [id number] Methodi 00:00:00 00:00:00 Gema HaRafal 92340.1.1 568 s t 3.430.2.7 Hospit a .3.126757 l .8 2021-12-16 2021-12-16 Hospital Sandy, Min 1.2.840.1 [id number] 2100 290278 Methodi 14:30:00 23:59:00 Encounter Umer 41574.1.[address] 3.430.2.7 Hospit a .3.355465 l .8 2021-12-16 2021-12-16 Evaluation Dasia Waters 1.2.840.1 1 [id number] 6105912596 Methodi 14:00:00 15:05:50 Tomasz Zavala 34182.1.[address] 3.430.2.7 Hospit a .3.799914 l .8 2021-12-16 2021-12-16 Pre-Admiss Licha Delgado 1.2.840.1 [id number] 21 [id number] Methodi 10:00:00 11:00:00 ion Umer 19991.1.[address] Testing 3.430.2.7 Hospit a .3.599011 l .8 2021-12-16 2021-12-16 Outpatient LICHA DELGADO [facility] [id number] Rickreall 00:00:00 00:00:[address] 2021-12-16 2021-12-16 Plan of 1.2.840.1 [id number] 810757 7631 Methodi 00:00:00 00:00:[address] Documentat 3.430.2.7 Hos laura ion .3.659959 l .8 2021-12-16 2021-12-16 Telephone Lakhwindersalas, 1.2.840.1 [id number] 2100 735106 Methodi 00:00:00 00:00:[address] 3.430.2.7 Hospit a .3.721316 l .8 2021-12-16 2021-12-16 Travel 1.2.840.1 1.2.261.595 2507 815161 Methodi 00:00:00 00:00:[address] 3.430.2.7 0.2.7.3.698 Ho spita .3.241902 084.8 l .8 2021-12-16 2021-12-16 Outpatient LICHA DELGADO [facility] [id number] Rickreall 00:00:00 00:00:[address] 2021-12-16 2021-12-16 Outpatient EVELIN, [facility] [id number] 786 Rickreall 00:00:00 00:00:00 DASIA [address] 2021-12-15 2021-12-15 Telephone Licha Delgado 1.2.840.5 [id number] 21 [id number] Methodi 00:00:00 00:00:[address] 3.430.2.7 Hospit a .3.480651 l .8 2021-12-14 2021-12-14 Orders Evelin, 1.2.840.1 [id number] 091851 9820 Methodi 00:00:00 00:00:00 Only Dasia 56420.1.[address] Joi 3.430.2.7 Hospit a .3.510843 l .8 2021-12-10 2021-12-10 Telephone Andres, 1.2.840.1 [id number] Methodi 00:00:00 00:00:00 Gema Ulloa 23631.1.1 153 s t 3.430.2.7 Hospit a .3.610780 l .8 2021-12-08 2021-12-08 Office Licha Delgado 1.2.840.1 [id number] 80272 95836 Methodi 13:10:00 13:20:00 Visit Umer 02644.1.[address] 3.430.2.7 Hospit a .3.076174 l .8 2021-12-08 2021-12-08 Outpatient LICHA DELGADO [facility] [id number] 0734 Rickreall 00:00:00 00:00:[address] 2021-12-08 2021-12-08 Travel 1.2.840.1 1.2.885.171 5913 507557 Methodi 00:00:00 00:00:[address] 3.430.2.7 0.2.7.3.698 Ho spita .3.726961 084.8 l .8 2021-12-02 2021-12-02 [facility] 1.2.840.1 [id number] 73562 31409 Methodi 11:28:00 14:27:00 Encounter Salvador 44284.1.[address] 3.430.2.7 Hospit a .3.676758 l .8 2021-12-02 2021-12-02 Anesthesia Blas Sher 1.2.840.1 104 107003 [id number] Methodi 13:04:00 13:42:00 Event Madison Perkins 49819.1.[address] 3.430.2.7 Hospit a .3.080421 l .8 2021-12-02 2021-12-02 Surgery [facility] 1.2.840.1 [id number] 347822 1630 Methodi 12:30:00 13:30:[address] 3.430.2.7 Hospit a .3.668062 l .8 2021-12-02 2021-12-02 Outpatient [facility] 903 [id number] 624 Rickreall 00:00:00 00:00:[address] 2021-12-02 2021-12-02 Abstract Manan, 1.2.840.1 [id number] 21862 Methodi 00:00:00 00:00:[address] 3.430.2.7 Hospit a .3.531743 l .8 2021-12-02 2021-12-02 Telephone Manan 1.2.840.1 [id number] 2100 711801 Methodi 00:00:00 00:00:[address] 3.430.2.7 Hospit a .3.599533 l .8 2021-12-02 2021-12-02 Travel 1.2.840.1 1.2.512.913 5723 200486 Methodi 00:00:00 00:00:[address] 3.430.2.7 0.2.7.3.698 Ho spita .3.961863 084.8 l .8 2021-11-27 2021-11-27 Orders David, 1.2.840.1 [id number] 422722 8272 Methodi 00:00:00 00:00:00 Only Magali 68513.1.[address] 3.430.2.7 Hospit a .3.595741 l .8 2021-11-25 2021-11-25 Office Dacmauri, 1.2.840.1 [id number] 3187 Methodi 11:00:00 11:04:39 Visit Salvador 27375.1.[address] 3.430.2.7 Hospit a .3.023086 l .8 2021-11-25 2021-11-25 Outpatient AMA [facility] [id number] 096 Rickreall 00:00:00 00:00:00 SALVADOR [address] 2021-11-24 2021-11-24 Hospital Licha Delgado 1.2.840.1 [id number] 2100 198322 Methodi 13:00:00 23:59:00 Encounter Peter [address]454.1.[address] 3.430.2.7 Hospit a .3.624874 l .8 2021-11-24 2021-11-24 Outpatient LICHA DELGADO [facility] [id number] 5392 Rickreall 00:00:00 00:00:[address] 2021-11-24 2021-11-24 Travel 1.2.840.1 1.2.991.928 9177 947235 Methodi 00:00:00 00:00:[address] 3.430.2.7 0.2.7.3.698 Ho spita .3.944094 084.8 l .8 2021-11-20 2021-11-20 Telephone Frankie, 1.2.840.1 [id number] 2099 386993 Methodi 00:00:00 00:00:[address] 3.430.2.7 Hospit a .3.807154 l .8 2021-11-17 2021-11-17 Office Licha Delgado 1.2.840.1 [id number] 86370 Methodi 09:20:00 10:10:45 Visit Umer 51795.1.[address] 3.430.2.7 Hospit a .3.982111 l .8 2021-11-17 2021-11-17 Outpatient LICHA DELGADO [facility] [id number] 4391 Rickreall 00:00:00 00:00:[address] 2021-11-17 2021-11-17 Telephone Licha Delgado 1.2.840.5 [id number] Methodi 00:00:00 00:00:[address] 3.430.2.7 Hospit a .3.814202 l .8 2021-11-17 2021-11-17 Travel 1.2.840.1 1.2.448.949 7412 520462 Methodi 00:00:00 00:00:[address] 3.430.2.7 0.2.7.3.698 Ho spita .3.620732 084.8 l .8 2021-11-16 2021-11-16 Abstract Manan 1.2.840.1 [id number] 96509 Methodi 00:00:00 00:00:[address] 3.430.2.7 Hospit a .3.995472 l .8 2021-11-13 2021-11-13 Telephone Manan 1.2.840.1 [id number] 2099 [id number] Methodi 00:00:00 00:00:[address] 3.430.2.7 Hospit a .3.837103 l .8 2021-11-11 2021-11-11 Telephone Manan, 1.2.840.1 [id number] 2099 [id number] Methodi 00:00:00 00:00:[address] 3.430.2.7 Hospit a .3.666306 l .8 2021-11-10 2021-11-10 Travel 1.2.840.1 1.2.639.593 6222 393691 Methodi 00:00:00 00:00:[address] 3.430.2.7 0.2.7.3.698 Ho spita .3.090848 084.8 l .8 2021-11-09 2021-11-09 Telephone Bernardino, 1.2.840.1 [id number] 2099 [id number] Methodi 00:00:00 00:00:[address] 3.430.2.7 Hospit a .3.192927 l .8 Results Test Description Test Time Test Comments Results Result Comments Source AFB culture 2022-02-26 00:13:00 Test Item Value Reference Range Interpretation Comme nts AFB culture isolate No growth after 6 weeks of Specimen InformationSpecimen (test code = 543-9) incubation. Source: Bronchial WashingSpecimen Site: CRYS (Left Upper Lobe) [id number] 00:15:00 Test Item Value Reference Range Interpretation Comments Fungus culture No growth Specimen isolate (test after 4 weeks InformationSp ecimen code = 580-1) of Source: Bronch ial incubation. WashingSpecimen Site: CRYS (Left Upper Lob e) [facility] [id number] 22:29:00 Test Item Value Reference Range Interpretation Comments POC glucose (test code 119 mg/dL 65-99 H Opera tor Name: Jim = [id number]) SheilitaDevice ID: [id number] able: [facility] Notified ice maker Interpretation Abnormal (test code = 49041-9) [facility] RNA [Presence] in Respiratory specimen by PANCHITO with probe [id number] 09:04:02 Test Item Value Reference Range Interpretation Comments SARS-CoV-2 (COVID-19) RNA Not detected [Presence] in Respiratory specimen by PANCHITO with probe detection (test code = 83237-9) Whether patient is employed in a Unknown healthcare setting (test code = 63319-9) Whether the patient has symptoms Unknown related to condition of interest (test code = 74979-3) Whether the patient was Unknown hospitalized for condition of interest (test code = 36186-7) Whether the patient was admitted Unknown to intensive care unit (ICU) for condition of interest (test code = 34353-7) Whether patient resides in a Unknown congregate care setting (test code = 67161-4) status (test code = Unknown 47387-7) Date and time of symptom onset Unknown (test code = 31686-1) [facility] [id number] 02:04:00 Test Item Value Reference Range Interpretation Comments Urine culture (test SEE COMMENT Bacteriu tran screen code = 3910680) negative. [facility] [id number] 22:19:00 Test Item Value Reference Range Interpretation Comments Respiratory Normal oral Specimen culture isolate flako InformationS pecimen (test code = isolated. Source: Bronchi al 75924-9) WashingSpecimen Site: CRYS (Left Upper Lob e) [facility] [id number] 18:02:00 Test Item Value Reference Range Interpretation Comments Fungus smear No fungi Specimen (test code = observed. InformationSpec imen Source: 1443) Bronchial Washi ngSpecimen Site: CRYS (Left Upper Lobe) [facility] [id number] 15:37:00 Test Item Value Reference Range Interpretation Comments AFB stain No acid fast Specimen (test code = bacilli (AFB) InformationSpe [facility] 676[facility]) seen. Source: Bronchi al WashingSpecimen Site: CRYS (Left Upper Lob e) [facility] [id number] 17:52:00 Test Item Value Reference Range Interpretation Comments Gram stain No organisms Specimen isolate (test seen InformationSpe cimen code = 1469) Source: Bronchi al WashingSpecimen Site: CRYS (Left Upper Lob e) [facility] [id number] 22:51:38 Test Item Value Reference Range Interpretation Comments Case number (test code = [id number]) Surgical pathology See link below for report (test code = PDF Lab Report 8147) Result status (test code This is Final Report = [id number]) for [id number] [facility] [id number] 12:09:00 Test Item Value Reference Range Interpretation Comments Product name (test code Red Blood Cells -1, = 25) Leukored Unit number (test code = [id number]) Product code (test code C5874P17 = 3092) Dispense status (test Returned to BB not code = 24) transfused Blood expiration date (test code = 302) Blood type code (test code = 308) Blood type (test code = B POSITIVE 1314) Compatibility (test code Compatible = 6400) QASIM (test code = QASIM) LAB: bld ext ok dos 01/06/2022LAB: bld ext ok dos 01/06/2022 [facility], fgvnxjkqt1363-89-87 20:40:00 Test Item Value Reference Range Interpretation Comments pH, arterial (test code 7.35-7.45 L = 2744-1) pCO2, arterial (test See_Comment [Autom ated message] code = 2019-8) The system [facility] generated this result transmitted ref erence range: 35 - 45 mmHg. The reference r josh was not used to interpret this result as normal/abnor mal. pO2, arterial (test code See_Comment H [A utomated message] = 2703-7) The system [employer] generated this result transmitted ref erence range: 80 - 90 mmHg. The reference r josh was not used to interpret this result as normal/abnor mal. Temperature, Celsius Degrees C (test code = 8310-5) O2 saturation, arterial 97 % 95-100 (test code = 2708-6) pH, arterial corrected (test code = 76706-2) pCO2, arterial corrected mmHg (test code = 94811-9) pO2, arterial corrected mmHg (test code = 66472-4) Base excess, arterial See_Comment L [Auto mated message] (test code = 1925-7) The [facility] tem which generated this result transmitted ref erence range: -2 - 2 m Eq/L. The reference r josh was not used to interpret this result as normal/abnor mal. Lab Interpretation (test Abnormal code = 46839-8) [facility], [id number] 20:40:00 Test Item Value Reference Range Interpretation Comments Glucose, syringe (test code = 175 mg/dL 65-99 H 2345-7) Lab Interpretation (test code = Abnormal 49454-5) [facility] [id number] 20:40:00 Test Item Value Reference Range Interpretation Comments Hemoglobin, syringe (test code = 10.9 g/dL 12.0-16.0 L 718-7) Lab Interpretation (test code = Abnormal 19820-6) [facility], [id number] 20:40:00 Test Item Value Reference Range Interpretation Comments Lactic acid, syringe (test code = 0.8 mmol/L 0.5-2.2 56101-4) [facility] [id number] 20:40:00 Test Item Value Reference Range Interpretation Comments Potassium, syringe See_Comment [Automat ed message] The (test code = 2007) system [employer] generated this result tra nsmitted reference range : 3.5 - 5.0 mEq/L. The refe rence range was not used to interpret this result as normal/abnormal . [facility], [id number] 20:40:00 Test Item Value Reference Range Interpretation Comments Sodium, syringe (test See_Comment L [Auto mated message] code = 2947-0) The system [employer] generated this result transmitted ref erence range: 135 - 14 8 mEq/L. The refe rence range was not u sed to interpret this result as normal/abnor mal. Lab Interpretation (test Abnormal code = 15185-5) [facility], diffusion, lung [id number] 20:34:38 Test Item Value Reference Range Interpretation Comments VC Pre (test code = 2.91 L 2.69-4.11 5374) VC Predicted (test code = 5372) VC LLN (test code = 5373) VC % Pre of Predicted 85.6 % (test code = 5375) TLC Pre (test code = 4.99 L 4.12-6.09 5416) TLC Predicted (test code = 5414) TLC LLN (test code = 5415) TLC % Pre of Predicted 97.7 % (test code = 5417) RV Pre (test code = 2.08 L 1.39-2.54 5402) RV Predicted (test code = 5400) RV LLN (test code = 5401) RV % Pre of Predicted 105.7 % (test code = 5403) RV % TLC Pre (test 41.62 % 30.11-49.29 code = 5409) RV % TLC Predicted (test code = 5407) RV % TLC LLN (test code = 5408) RV % TLC % Pre of 104.8 % Predicted (test code = 5410) R0.5IN Pre (test code See_Comment [Auto mated message] = 5182) The system [employer] generated this result transmitted ref erence range: 3.06 - 3 .06 cmH2O*s/L. The reference range was not used to interpr et this result as normal/abnormal . R0.5IN Predicted (test code = 5512) R0.5IN LLN (test code = 5513) R0.5IN % Pre of 40.7 % Predicted (test code = 5515) FRCpl Pre (test code = 2.64 L 1.94-3.58 5388) FRCpl % Predicted (test code = 5386) FRCpl % LLN (test code = 5387) FRCpl % Pre of 95.8 % Predicted (test code = 5389) ERV Pre (test code = 0.57 L 0.79-0.79 5381) ERV Predicted (test code = 5379) ERV LLN (test code = 5380) ERV % Pre of Predicted 71.3 % (test code = 5382) IC Pre (test code = 2.35 L 2.15-2.15 5395) IC Predicted (test code = 5393) IC LLN (test code = 5394) IC % Pre of Predicted 108.8 % (test code = 5396) sR0.5IN Pre (test code cmH2O*s = 5521) Raw Pre (test code = See_Comment [Autom ated message] 9029) The system [employer] generated this result transmitted ref erence range: 3.06 - 3 .06 cmH2O*s/L. The reference range was not used to interpr et this result as normal/abnormal . Raw Predicted (test code = 5505) Raw LLN (test code = 5506) Raw % Pre of Predicted 133.3 % (test code = 5508) sGaw Predicted (test See_Comment [Autom ated message] code = 5528) The system [employer] generated this result transmitted ref erence range: 0.10 - 0 .10 1/(cmH2O*s). Th e reference range was not used to interpr et this result as normal/abnormal . sGaw Predicted (test code = 5526) sGaw LLN (test code = 5527) sGaw % Pre of 81.5 % Predicted (test code = 5529) FEV1 Post (test code = 1.83 L 2.02-3.23 5349) FEV1 Pre (test code = 1.9 L 2.02-3.23 5348) FEV1 Predicted (test code = 5302) FEV1 LLN (test code = 5347) FEV1 % Pre of 72.5 % Predicted (test code = 5308) FEV1 % Post of 69.6 % Predicted (test code = 5350) FEV1 % Change (test -4 % code = 5351) FVC Post (test code = 2.59 L 2.69-4.11 5356) FVC Pre (test code = 2.91 L 2.69-4.11 5354) FVC Predicted (test code = 5307) FVC LLN (test code = 5353) FVC % Pre of Predicted 85.6 % (test code = 5355) FVC % Post of 76.1 % Predicted (test code = 5357) FVC % Change (test -11.1 % code = 5358) FEV1/FVC % Post (test 70.51 % 68.05-87.64 code = 5363) FEV1/FVC % Pre (test 65.32 % 68.05-87.64 code = 5361) FEV1/FVC % Predicted (test code = 5359) FEV1/FVC % LLN (test code = 5360) FEV1/FVC % Pre of 83.9 % Predicted (test code = 5362) FEV1/FVC % Post of 90.6 % Predicted (test code = 5364) FEV1/FVC % Change 7.9 % (test code = 5365) FEF 25-75% Post (test 1.15 L/s 1.09-3.64 code = 5549) FEF 25-75% Pre (test 0.9 L/s 1.09-3.64 code = 5547) FEF 25-75% Predicted (test code = 5546) FEF 25-75% LLN (test code = 5545) FEF 25-75% % Pre of 38.1 % Predicted (test code = 5548) FEF 25-75% % Post of 48.7 % Predicted (test code = 5550) FEF 25-75% % Change 27.9 % (test code = 5551) PEF Post (test code = 4.52 L/s 4.63-8.16 5369) PEF Pre (test code = 4.55 L/s 4.63-8.16 5367) PEF Predicted (test code = 5310) PEF LLN (test code = 5366) PEF % Pre of Predicted 71.1 % (test code = 5368) PEF % Post of 70.7 % Predicted (test code = 5370) PEF % Change (test -0.6 % code = 5371) DLCO Pre (test code = See_Comment [Auto mated message] 5423) The system [employer] generated this result transmitted ref erence range: 15.41 - 28.41 ml/(min*mmHg). The reference range was not used to interpr et this result as normal/abnormal . DLCO Predicted (test code = 5421) DLCO LLN (test code = 5422) DLCO % Pre of 67 % Predicted (test code = 5424) DLCOc Pre (test code = See_Comment [Aut omated message] 5430) The system [employer] generated this result transmitted ref erence range: 15.41 - 28.41 ml/(min*mmHg). The reference range was not used to interpr et this result as normal/abnormal . DLCOc Predicted (test code = 5428) DLCOc LLN (test code = 5429) DLCOc % Pre of 67.8 % Predicted (test code = 5431) DL/VA Pre (test code = See_Comment [Aut omated message] 5437) The system [employer] generated this result transmitted ref erence range: 3.07 - 5 .70 ml/(min*mmHg*L) . The reference range was not used to interpr et this result as normal/abnormal . DL/VA Predicted (test code = 5435) DL/VA LLN (test code = 5436) DL/VA % Pre of 82.3 % Predicted (test code = 5438) KCOc SB Pre (test code See_Comment [Aut omated message] = 5535) The system [employer] generated this result transmitted ref erence range: 3.07 - 5 .70 ml/(min*mmHg*L) . The reference range was not used to interpr et this result as normal/abnormal . KCOc SB Predicted (test code = 5533) KCOc SB LLN (test code = 5534) KCOc SB % Pre of 83.4 % Predicted (test code = 5536) VA SB Pre (test code = 4.07 L 4.12-6.33 5444) VA SB Predicted (test code = 5442) VA SB LLN (test code = 5443) VA SB % Pre of 77.8 % Predicted (test code = 5445) Hb Pre (test code = g(Hb)/dL 5540) [facility]
[2022-07-03 11:37] LABS: Absolute Lymphocytes (CBC) 3.7 K/uL (0.7-4.9); Hematocrit 34.2 % (36.0-45.0); Lymphocytes % 15.6 % (15.3-44.8); MCV 107.2 fL (80-100); MPV 8.3 fL (7.6-11.3); RBC Red Blood Cell Count 3.19 M/uL (3.86-4.86)
--- NOTE | 2022-07-03 12:06 | RAD REPORT ---
EXAM DESCRIPTION: RAD - Chest Single View - 07/03/2022 11:51 am CLINICAL HISTORY: SWELLING Chest pain. COMPARISON: Chest Single View dated 03/07/2016 FINDINGS: Portable technique limits examination quality. Mild linear atelectasis is seen in the right mid lung. The lungs are otherwise emphysematous. The hea rt is normal in size. Probable large hiatal hernia.Hardware is present proximal left humerus. IMPRESSION: No acute intrathoracic process suspected.
[2022-07-03 12:19] LABS: Anisocytosis SLIGHT; Blood Morphology Comment NOTED (NOT SEEN); Macrocytosis SLIGHT
[2022-07-03 12:20] LABS: Platelet Estimate INCR
[2022-07-03 12:22] LABS: Albumin 1.6 g/dL (3.4-5.0); Bilirubin Total 1.1 mg/dL (0.2-1.0); Protein, Total 5.1 g/dL (6.4-8.2); Troponin High Sensitivity 55.4 pg/mL (<58.9)
[2022-07-03 12:25] LABS: Magnesium 1.9 mg/dL (1.6-2.4)
[2022-07-03 12:27] LABS: Potassium 2.7 mmol/L (3.5-5.1)
[2022-07-03] MEDS ORDERED: POTASSIUM CL SA 10 MEQ TAB PO ONE ×2 (12:41→16:57)
[2022-07-03] MEDS ORDERED: FUROSEMIDE 40 MG/4 ML VIAL ONE (12:48)
[2022-07-03] MEDS ORDERED: CEFEPIME 2 GM VIAL ONE (14:02)
[2022-07-03] MEDS ORDERED: NA CHLORIDE 0.9% 100 ML IV ONE (14:02)
[2022-07-03] MEDS ORDERED: VANCOMYCIN 1 GM in NA CHLORIDE 0.9% 250 ML IVPB ONE (15:00)
--- NOTE | 2022-07-03 15:21 | RAD REPORT ---
EXAM DESCRIPTION: CTAbdomen Pelvis W Contrast - 07/03/2022 3:09 pm CLINICAL HISTORY: Abdominal pain. abdominal distention, infection w/unknown source COMPARISON: Abdomen Pelvis W Contrast dated 04/10/2021; Abdomen WWo Cont dated 05/15/2021 TECHNIQUE: Biphasic CT imaging of the abdomen and pelvis was performed with 100 ml non-ionic IV cont rast. All CT scans are performed using dose optimization technique as appropriate and may include automated exposure control or mA/KV adjustment according to patient size. FINDINGS: Small bilateral pleural effusions with atelectasis in the right lung base.Large hiatal her ardha with entire stomach intrathoracic. Heterogenous enhancement pattern is seen involving the liver parenchyma. Mild free fluid is seen in t he upper abdomen. The spleen, pancreas, right adrenal gland are normal. 24 mm left adrenal mass. Both kidneys show no hydronephrosis or mass. There is a significant enhancement and wall thickening of the colon with significant diverticulosis c kadeem. Nonvisualized appendix. No evidence of significant lymphadenopathy. No suspicious bony findings. IMPRESSION: Moderately severe diffuse pancolitis pattern is seen. Mild free fluid in the abdomen and pelvis. Nonspecific heterogenous enhancement pattern to the liver parenchyma seen could be related to hepatic inflammation or veno-occlusive disease. 24 mm left adrenal mass. Large hiatal hernia with the entirety of the stomach intrathoracic.
--- NOTE | 2022-07-03 15:29 | EDPHYS ---
Physician Documentation [facility] Name: Sherry Ro Age: 62 yrs Sex: Female : 1960 Arrival Date: 07/03/2022 Time: 10:56 Bed 3 Private MD: ED Physician Christina Zamudio HPI: 07/03 11:04 This 62 yrs old Female presents to ER via EMS with complaints of Edema. sd2 11:04 62 yo F presents via EMS with CC of worsening edema. Reports bilateral ankle edema sd2 initially started 1 year ago and has progressively worsened since then. Over the past 2 weeks swelling up to calves and thighs and abdominal distention as well. Denies CP or SOB. Was started on Lasix by her PCP 1.5 weeks ago for 1 week but did not notice any significant improvement at that time. Denies any prior cardiac, liver or kidney problems with recent labs drawn. Has been seen by Cardiology, Vascular Surgery and Neurology since the symptoms started with negative venous and arterial dopplers of BLEs and echo a couple of months ago. . Historical: - Allergies: 11:03 PENICILLINS; db - PMHx: 18:56 esophageal cancer; Hypertensive disorder; db - PSHx: 18:56 esophageal surgery; left shoulder surgery; db - Immunization history:: Adult Immunizations unknown, Client reports receiving the 2nd dose of the Covid vaccine. - Social history:: Smoking status: Patient reports the use of cigarette tobacco products, smokes one-half pack cigarettes per day. ROS: 11:04 Constitutional: Negative for fever, chills, and weight loss, Eyes: Negative for injury, sd2 pain, redness, and discharge, Cardiovascular: Negative for chest pain, palpitations, and edema, Respiratory: Negative for shortness of breath, cough, wheezing. Abdomen/GI: Negative for abdominal pain, nausea, vomiting, diarrhea. Positive for distention. MS/Extremity: Negative for injury and deformity, Skin: Negative for injury, rash, and discoloration, Neuro: Negative for headache, numbness and tingling. Exam: 11:04 Constitutional: This is a well developed, well nourished patient who is awake, alert, sd2 and in no acute distress. Head/Face: Normocephalic, atraumatic. Eyes: EOMI, normal conjunctiva bilaterally Chest/axilla: Normal chest wall appearance and motion. Nontender with no deformity. Cardiovascular: Regular rate and rhythm with a normal S1 and S2. No gallops, murmurs, or rubs. 2+ distal pulses. Respiratory: Lungs have equal breath sounds bilaterally, clear to auscultation and percussion. No rales, rhonchi or wheezes noted. No increased work of breathing, no retractions or nasal flaring. Abdomen/GI: Soft, non-tender, with normal bowel sounds. No guarding or rebound. No evidence of tenderness throughout. Moderate abdominal distention present. Skin: Warm, dry with normal turgor. Normal color with no rashes, no lesions, and no evidence of cellulitis. MS/ Extremity: Pulses equal, no cyanosis. Neurovascular intact. Full, normal range of motion. Ambulatory without difficulty. 3+ pitting BLE edema present up to distal thighs Psych: Awake, alert, with orientation to person, place and time. Behavior, mood, and affect are within normal limits. 11:30 ECG was reviewed by the Attending Physician. NSR, rate 89, no STEMI criteria, baseline sd2 artifact present Vital Signs: 10:45 BP 127 / 90; Pulse 95; Resp 20; Temp 97.7(O); Pulse Ox 100% on R/A; Weight 63.5 kg; db Height 5 ft. 4 in. (162.56 cm); 11:00 BP 127 / 88; Pulse 93; Resp 18; Pulse Ox 100% on R/A; db 12:00 BP 116 / 84; Pulse 87; Resp 18; Pulse Ox 99% on R/A; db 12:30 BP 107 / 83; Pulse 85; Resp 18; Pulse Ox 99% on R/A; db 14:00 BP 105 / 84; Pulse 90; Resp 18; Pulse Ox 100% on R/A; db 15:21 BP 117 / 84; Pulse 96; Resp 18; Pulse Ox 100% on R/A; db 16:01 BP 103 / 72; Pulse 95; Resp 18; Pulse Ox 99% on R/A; db 17:00 BP 107 / 80; Pulse 94; Resp 18; Pulse Ox 99% on R/A; db 18:30 BP 112 / 75; Pulse 94; Resp 18; Pulse Ox 100% on R/A; db 10:45 Body Mass Index 24.03 (63.50 kg, 162.56 cm) db MDM: 11:02 Patient medically screened. sd2 11:04 Differential Diagnosis CHF, liver dysfunction, kidney dysfunction, electrolyte sd2 abnormality, lymphedema among others. Data reviewed: vital signs, nurses notes, EMS record. 15:25 Data reviewed: lab test result(s), EKG, radiologic studies. Counseling: I had a sd2 detailed discussion with the patient and/or guardian regarding: the historical points, exam findings, and any diagnostic results supporting the discharge/admit diagnosis, lab results, radiology results, the need for further work-up and treatment in the hospital. ED course: Labs with signs of infectious process. CTAP confirmed source as pancolitis. BNP elevated with edema on exam. Lasix given. Blood cultures drawn and broad spectrum abx given. . 16:47 ED course: Discussed case with Dr. Judi Hunt, hospitalist, and Dr. Ulrich, operations support professionals, sd2 at [facility] who have accepted the patient for transfer due to higher level of care as we do not have GI taxonomy teacher or hepatology at our facility currently.. 07/03 11:03 Order name: CBC with Diff sd2 07/03 11:03 Order name: CMP; Complete Time: 12:40 sd2 07/03 11:03 Order name: Magnesium; Complete Time: 12:40 sd2 07/03 11:03 Order name: BNP; Complete Time: 12:40 sd2 07/03 11:03 Order name: Troponin High Sensitivity; Complete Time: 12:40 sd2 07/03 12:14 Order name: Urine Microscopic Only sd2 07/03 11:03 Order name: XRAY Chest (1 view); Complete Time: 12:14 sd2 07/03 12:14 Order name: Procalcitonin; Complete Time: 13:47 sd2 07/03 12:20 Order name: Manual Differential EDMS 07/03 13:48 Order name: Blood Culture Adult (2) sd2 07/03 15:48 Order name: SARS RAPID em1 07/03 16:16 Order name: Lactate w/ 2H reflex if indic. sd2 07/03 16:16 Order name: PT-INR sd2 07/03 16:50 Order name: Urine Dipstick-Ancillary EDMS 07/03 11:03 Order name: EKG - Nurse/Tech; Complete Time: 11:28 sd2 07/03 12:14 Order name: Urine Dipstick-Ancillary (obtain specimen); Complete Time: 16:52 sd2 07/03 13:50 Order name: CT Abd/Pelvis - IV Contrast Only; Complete Time: 15:22 sd2 Administered Medications: 12:43 Drug: Potassium Chloride 40 mEq Route: PO; kb3 13:31 Follow up: Response: No adverse reaction db 12:56 Drug: Lasix (furosemide) 40 mg Route: IVP; Site: left wrist; db 13:31 Follow up: Response: No adverse reaction db 15:22 Drug: Cefepime 2 grams Route: IVPB; Rate: 200 ml/hr; Infused Over: 30 mins; Site: right db antecubital; 16:45 Follow up: Response: No adverse reaction; IV Status: Completed infusion; IV Intake: db 100ml 16:45 Drug: vancoMYCIN 15 mg/kg Route: IVPB; Site: right antecubital; db 18:42 Follow up: Response: No adverse reaction; IV Status: Completed infusion; IV Intake: db 250ml 17:00 Drug: Potassium Chloride 40 mEq Route: PO; db 18:42 Follow up: Response: No adverse reaction db Disposition Summary: 07/03/22 16:29 Transfer Ordered Transfer Location: [facility] sd2 Reason: Higher level of care sd2 Condition: Stable(07/03/22 16:29) sd2 Problem: an ongoing problem(07/03/22 16:29) sd2 Symptoms: are unchanged(07/03/22 16:29) sd2 Accepting Physician: Dr. Hunt(07/03/22 19:52) tw5 Diagnosis - Bilateral lower extremity edema sd2 - Hypokalemia sd2 - Hypoproteinemia sd2 - Abdominal distention sd2 - Leukocytosis sd2 - Macrocytic anemia sd2 Forms: - Medication Reconciliation Form sd2 - SBAR form sd2 Signatures: Dispatcher [employer] Katalina Seth tw5 Christina Zamudio MD MD sd2 Glenda Riggins, RN RN kb3 Zena Blandon RN RN db Corrections: (The following items were deleted from the chart) 16: 15:29 Inpatient Admission sd2 sd2 16:28 15:29 Hiren Barragan sd2 sd2 16:28 15:29 Telemetry/MedSurg (Inpatient) sd2 sd2 16: 15:29 Stable sd2 sd2 16: 15:29 an ongoing problem sd2 sd2 16: 15:29 are unchanged sd2 sd2 16: 15:29 Standard sd2 sd2 16: 15:29 sd2 sd2 16: 15:29 Bilateral lower extremity edema sd2 sd2 16: 15:29 Abdominal distention sd2 sd2 16:28 15:29 Pancolitis sd2 sd2 19:52 16:29 Dr. Hunt sd2 tw5
--- NOTE | 2022-07-03 15:29 | ER ---
Nurse's Notes [facility] Name: Sherry Ro Age: 62 yrs Sex: Female : 1960 Arrival Date: 07/03/2022 Time: 10:56 Bed 3 Private MD: Diagnosis: Bilateral lower extremity edema;Hypokalemia;Hypoproteinemia;Abdominal distention;Leukocytosis;Macrocytic anemia Presentation: 07/03 10:45 Chief complaint: EMS states: BILAT FOOT SWELLING X 2 WEEKS, ABDOMINAL DISTENTION X 1 db WEEK. PATIENT HAD A TRIP AND FALL LAST NIGHT AND HIT LIP. Coronavirus screen: Vaccine status: Patient reports receiving the 2nd dose of the covid vaccine. Client indicates they have traveled out of the [place] in the last 14 days. At this time, the client does not indicate any symptoms associated with coronavirus-19. Ebola Screen: Patient negative for fever greater than or equal to 101.5 degrees Fahrenheit, and additional compatible Ebola Virus Disease symptoms Patient denies exposure to infectious person. Patient denies travel to an Ebola-affected area in the 21 days before illness onset. No symptoms or risks identified at this time. Initial Sepsis Screen: Does the patient meet any 2 criteria? No. Patient's initial sepsis screen is negative. Initial Sepsis Screen: Does the patient have a suspected source of infection? No. Patient's initial sepsis screen is negative. Risk Assessment: Do you want to hurt yourself or someone else? Patient reports no desire to harm self or others. Onset of symptoms was July 03, 2022. Care prior to arrival: Medication(s) given: LASIX 40 MG IVP IV initiated. 22 GA, in the left wrist, Glucose check: 118. 10:45 Method Of Arrival: EMS: [facility] db 10:45 Acuity: JOVANNA 2 db Triage Assessment: 11:03 General: Appears in no apparent distress. comfortable, Behavior is calm, cooperative, db appropriate for age. Pain: Complains of pain in right foot and left foot. Neuro: No deficits noted. Level of Consciousness is awake, alert, obeys commands, Oriented to person, place, time, situation, Appropriate for age. Cardiovascular: No deficits noted. Respiratory: Airway is patent Respiratory effort is even, unlabored, Respiratory pattern is regular, Breath sounds are clear. GI: Abdomen is round distended. : No deficits noted. No signs and/or symptoms were reported regarding the genitourinary system. Derm: Wound noted mouth. Musculoskeletal: No deficits noted. No signs and/or symptoms reported regarding the musculoskeletal system. Injury Description: Abrasion sustained to mouth. Historical: - Allergies: 11:03 PENICILLINS; db - PMHx: 18:56 esophageal cancer; Hypertensive disorder; db - PSHx: 18:56 esophageal surgery; left shoulder surgery; db - Immunization history:: Adult Immunizations unknown, Client reports receiving the 2nd dose of the Covid vaccine. - Social history:: Smoking status: Patient reports the use of cigarette tobacco products, smokes one-half pack cigarettes per day. Screenin:[facility] ED Fall Risk Assessment (Adult) History of falling in the last 3 months, db including since admission Yes- single mechanical fall (1 pt) Confusion or Disorientation No (0 pts) Intoxicated or Sedated No (0 pts) Impaired Gait No (0 pts) Mobility Assist Device Used No (0 pt) Altered Elimination No (0 pt) Score/Fall Risk Level 0 - 2 = Low Risk Oriented to surroundings, Maintained a safe environment. Abuse screen: Denies threats or abuse. Denies injuries from another. Nutritional screening: No deficits noted. Tuberculosis screening: No symptoms or risk factors identified. Assessment: 12:00 Reassessment: Patient appears in no apparent distress at this time. No changes from db previously documented assessment. Patient and/or family updated on plan of care and expected duration. Pain level reassessed. Patient is alert, oriented x 3, equal unlabored respirations, skin warm/dry/pink. General: Appears in no apparent distress. comfortable, Behavior is calm, cooperative, appropriate for age, quiet. Pain: Denies pain. Neuro: No deficits noted. Level of Consciousness is awake, alert, obeys commands, Oriented to person, place, time, situation, Appropriate for age. Cardiovascular: No deficits noted. Respiratory: Reports shortness of breath. GI: No deficits noted. No signs and/or symptoms were reported involving the gastrointestinal system. : No deficits noted. No signs and/or symptoms were reported regarding the genitourinary system. EENT: No deficits noted. No signs and/or symptoms were reported regarding the EENT system. Derm: No deficits noted. No signs and/or symptoms reported regarding the dermatologic system. Musculoskeletal: No deficits noted. No signs and/or symptoms reported regarding the musculoskeletal system. 12:30 General: Spoke with lab, procalcitonin added on to existing blood in lab. kb3 13:30 Reassessment: Patient appears in no apparent distress at this time. No changes from db previously documented assessment. Patient is alert, oriented x 3, equal unlabored respirations, skin warm/dry/pink. General: Appears in no apparent distress. comfortable. 14:30 Reassessment: Patient appears in no apparent distress at this time. No changes from db previously documented assessment. Patient and/or family updated on plan of care and expected duration. Pain level reassessed. Patient is alert, oriented x 3, equal unlabored respirations, skin warm/dry/pink. 15:23 Reassessment: Patient appears in no apparent distress at this time. PURIWICK PLACED ON db PATIENT. PATIENT CLEANED AND BRIEF CHANGED. PATIENT WET WITH URINE. STATES IS NOT INCONTINENT BUT IS NOT ABLE TO AMBULATE. 16:30 Reassessment: Patient appears in no apparent distress at this time. No changes from db previously documented assessment. Patient and/or family updated on plan of care and expected duration. Pain level reassessed. 17:28 Reassessment: Patient appears in no apparent distress at this time. No changes from db previously documented assessment. Patient and/or family updated on plan of care and expected duration. Pain level reassessed. Patient is alert, oriented x 3, equal unlabored respirations, skin warm/dry/pink. Patient states feeling better. Vital Signs: 10:45 BP 127 / 90; Pulse 95; Resp 20; Temp 97.7(O); Pulse Ox 100% on R/A; Weight 63.5 kg; db Height 5 ft. 4 in. (162.56 cm); 11:00 BP 127 / 88; Pulse 93; Resp 18; Pulse Ox 100% on R/A; db 12:00 BP 116 / 84; Pulse 87; Resp 18; Pulse Ox 99% on R/A; db 12:30 BP 107 / 83; Pulse 85; Resp 18; Pulse Ox 99% on R/A; db 14:00 BP 105 / 84; Pulse 90; Resp 18; Pulse Ox 100% on R/A; db 15:21 BP 117 / 84; Pulse 96; Resp 18; Pulse Ox 100% on R/A; db 16:01 BP 103 / 72; Pulse 95; Resp 18; Pulse Ox 99% on R/A; db 17:00 BP 107 / 80; Pulse 94; Resp 18; Pulse Ox 99% on R/A; db 18:30 BP 112 / 75; Pulse 94; Resp 18; Pulse Ox 100% on R/A; db 10:45 Body Mass Index 24.03 (63.50 kg, 162.56 cm) db ED Course: 10:56 Patient arrived in ED. iw 10:57 Zena Blandon, ARIELLA is Primary Nurse. db 11:02 Christina Zamudio MD is Attending Physician. sd2 11:03 Triage completed. db 11:05 Arm band placed on right wrist. Patient placed in an exam room. db 11:05 Maintain EMS IV. Dressing intact. Good blood return noted. Site clean \T\ dry. Gauge \T\ db site: 22 g LEFT WRIST. 11:28 Patient has correct armband on for positive identification. Placed in gown. Bed in low mm9 position. Call light in reach. Side rails up X2. Adult w/ patient. Warm blanket given. bus driver/monitor on. Pulse ox on. NIBP on. 11:28 EKG done, by ED staff, reviewed by Christina Zamudio MD. mm9 11:53 XRAY Chest (1 view) In Process Unspecified. EDMS 15:11 CT Abd/Pelvis - IV Contrast Only In Process Unspecified. EDMS 15:26 Hiren Barragan MD is Hospitalizing Provider. sd2 18:53 Report given to Report given to Keith Medina RN at receiving hospital. db 19:52 No provider procedures requiring assistance completed. Patient transferred, IV remains tw5 in place. Administered Medications: 12:43 Drug: Potassium Chloride 40 mEq Route: PO; kb3 13:31 Follow up: Response: No adverse reaction db 12:56 Drug: Lasix (furosemide) 40 mg Route: IVP; Site: left wrist; db 13:31 Follow up: Response: No adverse reaction db 15:22 Drug: Cefepime 2 grams Route: IVPB; Rate: 200 ml/hr; Infused Over: 30 mins; Site: right db antecubital; 16:45 Follow up: Response: No adverse reaction; IV Status: Completed infusion; IV Intake: db 100ml 16:45 Drug: vancoMYCIN 15 mg/kg Route: IVPB; Site: right antecubital; db 18:42 Follow up: Response: No adverse reaction; IV Status: Completed infusion; IV Intake: db 250ml 17:00 Drug: Potassium Chloride 40 mEq Route: PO; db 18:42 Follow up: Response: No adverse reaction db Medication: 12:44 VIS not applicable for this client. db Intake: 16:45 IV: 100ml; Total: 100ml. db 18:42 IV: 250ml; Total: 350ml. db Outcome: 15:29 Decision to Hospitalize by Provider. sd2 16:29 ER care complete, transfer ordered by . sd2 19:52 Transferred by ground EMS Note: bedside report given to EMs tw5 19:52 Condition: stable 19:52 Instructed on the need for transfer. 19:52 Patient left the ED. tw5 Signatures: Dispatcher [employer] EDIlda Mandujano RN RN iw Wood, Tiffany tw5 Christina Zamudio MD MD sd2 Glenda Riggins RN RN kb3 Zena Blandon RN RN Yulissa Bell mm9
[2022-07-03] MEDS ORDERED: VANCOMYCIN 1 GM/VIAL ONE (15:52)
[2022-07-03] MEDS ORDERED: NA CHLORIDE 0.9% 250 ML ONE (15:52)
[2022-07-03 16:50] LABS: Urine Blood 1+ (Negative); Urine Glucose Negative (Negative); Urine Protein Negative (Negative)
[2022-07-03 16:56] LABS: Urine Bacteria <20 /HPF (<20); Urine RBC <5 /HPF (None Seen)
[2022-07-03 17:03] LABS: SARS-CoV-2 Antigen Rapid Res Negative (Negative)
[2022-07-03 17:13] LABS: Protime INR 1.31
[2022-07-03] MEDS ORDERED: VALACYCLOVIR 500 MG TAB ONE (17:39)
[2022-07-03] MEDS ORDERED: predniSONE 20 MG TAB ONE (17:40)
[2022-07-03 20:07] VITALS: BP 112/75; O2SAT 100
== END 2022-07-03 19:52 | disposition short-term general hospital (02) ==
LOC: ER 10:49
DX: R60.9 Edema, unspecified (principal); E87.6 Hypokalemia; E77.8 Other disorders of glycoprotein metabolism; D72.829 Elevated white blood cell count, unspecified; D53.9 Nutritional anemia, unspecified; R14.0 Abdominal distension (gaseous); I10 Essential (primary) hypertension; F17.210 Nicotine dependence, cigarettes, uncomplicated; Z88.0 Allergy status to penicillin; Z20.822 Contact with and (suspected) exposure to COVID-19
CPT/HCPCS: 87040 ×2; 85025; 36415; 83735; 85610; 83605; 84484; 80053; 84145; 83880; 74177; 71045; 87811; Q9967; J1940; J3370; J0692; J7050; 81003; 81015; 93005; J7512